=== PATIENT | female | born 1970 | race Hispanic/Latino ===

== ENCOUNTER 2020-09-05 03:57 | Inpatient (IN) | payer SELFPAY ==
[2020-09-05] MEDS ORDERED: NA CHLORIDE 0.9% 1,000 ML ONE (04:51)
[2020-09-05] MEDS ORDERED: CEFTRIAXONE/SWI 1gm 1 GM/10 ML SYR ONE (04:51)
[2020-09-05] MEDS ORDERED: NA CHLORIDE 0.9% 250 ML ONE (04:51)
[2020-09-05] MEDS ORDERED: AZITHROMYCIN 500 MG INJ IVPB ONE (04:51)
[2020-09-05 05:06] LABS: Absolute Lymphocytes (CBC) 1.3 K/uL (0.7-4.9); Basophils % 0.8 % (0-1.3); Lymphocytes % 11.8 % (15.3-44.8); RBC Red Blood Cell Count 4.71 M/uL (3.86-4.86)
[2020-09-05 05:10] LABS: Protime INR 1.09
[2020-09-05 05:43] LABS: ALT/SGPT 29 U/L (12-78); AST/SGOT 22 U/L (15-37); Albumin 3.5 g/dL (3.4-5.0); Alkaline Phosphatase 85 U/L (45-117); Amylase 49 U/L (25-115); BUN Blood Urea Nitrogen 10 mg/dL (7-18); Bicarbonate 30 mmol/L (21-32); Bilirubin Direct < 0.1 mg/dL (0-0.2); Bilirubin Total 0.4 mg/dL (0.2-1.0); CKMB Creatine Kinase MB 2.1 ng/mL (0.3-3.6); Creatine Phosphokinase 112 U/L (26-192); Glucose Level 121 mg/dL (74-106); Lipase 139 U/L (73-393); Potassium 3.3 mmol/L (3.5-5.1); Protein, Total 7.1 g/dL (6.4-8.2); Sodium Level 138 mmol/L (136-145); Troponin (Emerg Dept Use Only) < 0.02 ng/mL (0.0-0.045)
--- NOTE | 2020-09-05 07:04 | EDPHYS ---
Physician Documentation [facility] Name: Angeles Carmona Age: 49 yrs Sex: Female : 1970 Arrival Date: 09/05/2020 Time: 03:59 Bed 15 Private MD: ED Physician Daria Mckeon HPI: 09/05 05:50 This 49 yrs old Female presents to ER via Ambulatory with complaints of Abdominal Pain, ma2 Breathing Difficulty. 05:50 The patient has shortness of breath at rest. Onset: The symptoms/episode began/occurred ma2 gradually, 1 week(s) ago. Associated signs and symptoms: Pertinent positives: abd pain and distention , Pertinent negatives: productive cough, dizziness, hemoptysis, loss of consciousness, nausea. Severity of symptoms: At their worst the symptoms were mild in the emergency department the symptoms are unchanged. The patient has not experienced similar symptoms in the past. Historical: - Allergies: 04:28 No Known Allergies; rr5 - Home Meds: 04:28 None [Active]; rr5 - PMHx: 04:28 None; rr5 - PSHx: 04:28 abdominal surgery; rr5 - Immunization history:: Adult Immunizations unknown. - Social history:: Smoking status: unknown Patient/guardian denies using alcohol, street drugs, Patient/guardian denies using The patient lives with family. - Family history:: not pertinent. ROS: 05:50 Constitutional: Negative for fever, chills, and weight loss. ma2 05:50 All other systems are negative. Exam: 05:50 Constitutional: This is a well developed, well nourished patient who is awake, alert, ma2 and in no acute distress. Head/Face: Normocephalic, atraumatic. Eyes: Pupils equal round and reactive to light, extra-ocular motions intact. Lids and lashes normal. Conjunctiva and sclera are non-icteric and not injected. Cornea within normal limits. Periorbital areas with no swelling, redness, or edema. ENT: Nares patent. No nasal discharge, no septal abnormalities noted. Tympanic membranes are normal and external auditory canals are clear. Oropharynx with no redness, swelling, or masses, exudates, or evidence of obstruction, uvula midline. Mucous membranes moist. Neck: Trachea midline, no thyromegaly or masses palpated, and no cervical lymphadenopathy. Supple, full range of motion without nuchal rigidity, or vertebral point tenderness. No Meningismus. Chest/axilla: Normal chest wall appearance and motion. Nontender with no deformity. No lesions are appreciated. Cardiovascular: Regular rate and rhythm with a normal S1 and S2. No gallops, murmurs, or rubs. Normal PMI, no JVD. No pulse deficits. Respiratory: bilateral basal rales, otherwise Lungs have equal breath sounds bilaterally, clear to percussion. No r wheezes noted. no retractions or nasal flaring. Abdomen/GI: Soft, non-tender, with normal bowel sounds. No distension or tympany. No guarding or rebound. No evidence of tenderness throughout. Back: No spinal tenderness. No costovertebral tenderness. Full range of motion. Skin: Warm, dry with normal turgor. Normal color with no rashes, no lesions, and no evidence of cellulitis. MS/ Extremity: Pulses equal, no cyanosis. Neurovascular intact. Full, normal range of motion. Neuro: Awake and alert, GCS 15, oriented to person, place, time, and situation. Cranial nerves II-XII grossly intact. Motor strength 5/5 in all extremities. Sensory grossly intact. Cerebellar exam normal. Normal gait. Vital Signs: 04:17 BP 133 / 98; Pulse 128; Resp 24; Temp 98.5; Pulse Ox 97% ; rr5 04:28 Weight 90.72 kg; Height 5 ft. 5 in. (165.10 cm); Pain 6/10; rr5 05:32 BP 124 / 76; Pulse 121; Resp 27; Temp 98.5; Pulse Ox 99% ; Pain 0/10; jv1 06:31 BP 165 / 102; Pulse 114; Resp 20; Temp 98.5; Pulse Ox 100% ; Pain 0/10; jv1 07:00 BP 145 / 100; Pulse 113; Resp 17; Pulse Ox 100% on 2 lpm NC; bp 08:00 BP 139 / 98; Pulse 113; Resp 25; Pulse Ox 100% ; bp 09:00 BP 135 / 95; Pulse 116; Resp 29; Pulse Ox 100% ; bp 10:00 BP 143 / 91; Pulse 94; Resp 34; Pulse Ox 100% on 50% Venturi mask; bp 04:28 Body Mass Index 33.28 (90.72 kg, 165.10 cm) rr5 MDM: 04:14 Patient medically screened. [facility] 05:50 Differential diagnosis: Anemia Bronchitis CHF exacerbation, Chronic Obstructive in2 Pulmonary Disease Myocardial Infarction pneumonia, Sepsis. 07:01 Data reviewed: vital signs, nurses notes. Counseling: I had a detailed discussion with [facility] the patient and/or guardian regarding: the historical points, exam findings, and any diagnostic results supporting the discharge/admit diagnosis, the presence of at least one elevated blood pressure reading (>120/80) during this emergency department visit, the need for further work-up and treatment in the hospital. Response to treatment: the patient's symptoms have markedly improved after treatment. ED course: discussed with dr. martines and will discuss w dr. whyte. 09/05 04:20 Order name: Amylase, Serum [facility] 09/05 04:20 Order name: Basic Metabolic Panel [facility] 09/05 04:20 Order name: Blood Culture Adult (2) [facility] 09/05 04:20 Order name: CBC with Diff [facility] 09/05 04:20 Order name: Ckmb [facility] 09/05 04:20 Order name: CPK [facility] 09/05 04:20 Order name: Lactate [facility] 09/05 04:20 Order name: LFT's [facility] 09/05 04:20 Order name: Lipase [facility] 09/05 04:20 Order name: Procalcitonin [facility] 09/05 04:20 Order name: Protime (+inr) [facility] 09/05 04:20 Order name: Ptt, Activated; Complete Time: 05:36 [facility] 09/05 04:20 Order name: Troponin (emerg Dept Use Only); Complete Time: 06:23 [facility] 09/05 04:20 Order name: Urine Microscopic Only [facility] 09/05 04:20 Order name: Flu; Complete Time: 06:23 [facility] 09/05 04:20 Order name: Amylase; Complete Time: 06:23 [facility] 09/05 04:20 Order name: Basic Metabolic Panel; Complete Time: 06:23 [facility] 09/05 04:20 Order name: Blood Culture [facility] 09/05 04:20 Order name: CBC with Automated Diff; Complete Time: 05:36 [facility] 09/05 04:20 Order name: CKMB Creatine Kinase MB; Complete Time: 06:23 EDMS 09/05 04:20 Order name: Creatine Phosphokinase; Complete Time: 06:23 EDMS 09/05 04:20 Order name: Lactate; Complete Time: 06:23 MS 09/05 04:20 Order name: Liver (Hepatic) Function; Complete Time: 06:23 EDMS 09/05 04:20 Order name: Lipase; Complete Time: 06:23 EDMS 09/05 04:20 Order name: Procalcitonin; Complete Time: 06:23 EDMS 09/05 04:20 Order name: Protime (+INR); Complete Time: 05:36 EDMS 09/05 05:04 Order name: Glucose, Ancillary Testing; Complete Time: 05:36 EDMS 09/05 05:07 Order name: CREATININE WHOLE BLOOD; Complete Time: 05:36 EDMS 09/05 07:02 Order name: SARS-COV-2 RT PCR [facility] 09/05 04:20 Order name: Chest Single View XRAY [facility] 09/05 04:20 Order name: Accucheck; Complete Time: 04:52 in2 09/05 04:20 Order name: Cardiac monitoring; Complete Time: 04:52 in2 09/05 04:20 Order name: EKG - Nurse/Tech; Complete Time: 04:52 in2 09/05 04:20 Order name: IV Saline Lock - Large Bore; Complete Time: 04:52 in2 09/05 04:20 Order name: Labs collected and sent; Complete Time: 04:53 in2 09/05 04:20 Order name: O2 Per Protocol; Complete Time: 05:29 ma2 09/05 04:20 Order name: O2 Sat Monitoring; Complete Time: 04:53 in2 09/05 05:37 Order name: Chest Abdomen Pelvis W Cont [facility] 09/05 08:09 Order name: CONS Pharmacy Consult [facility] 09/05 08:09 Order name: CONS Physician Consult [facility] 09/05 08:09 Order name: NPO [facility] 09/05 08:09 Order name: CBC with Automated Diff [facility] 09/05 08:09 Order name: CBC with Automated Diff [facility] 09/05 08:09 Order name: Comprehensive Metabolic Panel [facility] 09/05 08:09 Order name: Comprehensive Metabolic Panel [facility] 09/05 08:09 Order name: Troponin I [facility] 09/05 08:09 Order name: Troponin I [facility] 09/05 08:09 Order name: Troponin I [facility] 09/05 08:11 Order name: Echo with Doppler [facility] 09/05 08:11 Order name: Thoracentesis w/ US Guide [facility] 09/05 08:14 Order name: CONS Physician Consult [facility] 09/05 09:42 Order name: CXR XRAY 09/05 10:45 Order name: RAD [facility] 09/05 12:04 Order name: RAD [facility] 09/05 14:24 Order name: CXR XRAY 09/05 14:56 Order name: RAD [facility] 09/05 04:20 Order name: Droplet/Contact Precautions; Complete Time: 06:27 ma2 Administered Medications: 04:40 Drug: NS 0.9% 1000 ml Route: IV; Rate: 1 bolus; Site: right antecubital; jv1 07:07 Follow up: IV Status: Order to discontinue infusion; IV Intake: 700ml jv1 05:00 Drug: Rocephin 1 grams Route: IV; Rate: calculated rate; Site: right antecubital; jv1 06:30 Follow up: Response: No adverse reaction jv1 07:10 Follow up: IV Status: Completed infusion; IV Intake: 50ml bp 05:15 Drug: AZITHromycin 500 mg Route: IVPB; Infused Over: 1 hrs; Site: right antecubital; jv1 06:30 Follow up: Response: No adverse reaction jv1 07:10 Follow up: IV Status: Completed infusion; IV Intake: 100ml bp Disposition: 09/05/20 07:03 Hospitalization ordered by Daria Whyte for Inpatient Admission. Preliminary diagnosis is Pleural effusion in other conditions classified elsewhere - right sided. - Bed requested for Intensive Care Unit. - Status is Inpatient Admission. bp - Condition is Stable. - Problem is new. - Symptoms are unchanged. Signatures: Dispatcher [employer] [facility] Kirsty Maradiaga Brian, RN RN bp Daria Mckeon MD MD ma2 Aaw Bradford RN RN jv1 Eriberto Trammell, RN RN rr5 Corrections: (The following items were deleted from the chart) 05:37 05:32 Chest Abdomen W/ Con+CT.RAD.BRZ ordered. [facility] 05:39 04:21 Abdomen Pelvis W Con+CT.RAD.BRZ ordered. EDMS EDMS 06:05 04:21 CORONAVIRUS+MR.LAB.BRZ ordered. EDMS EDMS 06:27 04:20 Document PUI# ordered. [facility] rr5 06:27 04:20 Notify Health Dept [phone]/ ordered. [facility] rr5 07:09 07:01 ED course: discussed with dr. martines and dr. whyte. [place] [id number] 13:42 07:03 Hospitalization Ordered by Daria Whyte MD for Inpatient Admission. Preliminary bd diagnosis is Pleural effusion in other conditions classified elsewhere - right sided. Bed requested for Telemetry/MedSurg (Inpatient). Status is Inpatient Admission. Condition is Stable. Problem is new. Symptoms are unchanged. ma2 14:16 13:42 09/05/2020 07:03 Hospitalization Ordered by Daria Whyte MD for Inpatient bd Admission. Preliminary diagnosis is Pleural effusion in other conditions classified elsewhere - right sided. Bed requested for [facility] ER HOLD. Status is Inpatient Admission. Condition is Stable. Problem is new. Symptoms are unchanged. bd 16:39 14:16 09/05/2020 07:03 Hospitalization Ordered by Daria Whyte MD for Inpatient bp Admission. Preliminary diagnosis is Pleural effusion in other conditions classified elsewhere - right sided. Bed requested for Intensive Care Unit. Status is Inpatient Admission. Condition is Stable. Problem is new. Symptoms are unchanged. bd
--- NOTE | 2020-09-05 07:04 | ER ---
Nurse's Notes [facility] Name: Angeles Carmona Age: 49 yrs Sex: Female : 1970 Arrival Date: 09/05/2020 Time: 03:59 Bed 15 Private MD: Diagnosis: Pleural effusion in other conditions classified elsewhere-right sided Presentation: 09/05 04:17 Chief complaint: Patient states: shortness of breath for started 3 weeks ago. went to rr5 my doctor given medication but did not relieved. I am having abdominal pain, distention and constipated too. Coronavirus screen: Client denies travel out of the [place] in the last 14 days. difficulty breathing, fatigue, shortness of breath, Client presents with at least one sign or symptom that may indicate coronavirus-19. Standard/surgical mask placed on the client. Provider contacted for isolation considerations. Ebola Screen: Patient negative for fever greater than or equal to 101.5 degrees Fahrenheit, and additional compatible Ebola Virus Disease symptoms Patient denies exposure to infectious person. Patient denies travel to an Ebola-affected area in the 21 days before illness onset. Initial Sepsis Screen: Does the patient meet any 2 criteria? RR > 20 per min. HR > 90 bpm. Does the patient have a suspected source of infection? Yes: Productive cough/pneumonia Acute abdominal pain If YES to both, name of provider notified: Daria Mckeon MD. Risk Assessment: Do you want to hurt yourself or someone else? Patient reports no desire to harm self or others. Onset of symptoms was September 05, 2020. 04:17 Method Of Arrival: Ambulatory rr5 04:17 Acuity: SHANTA 2 rr5 Triage Assessment: 04:35 General: Appears uncomfortable, well groomed, well developed, Behavior is calm, jv1 cooperative, appropriate for age. Pain: Denies pain. EENT: No signs and/or symptoms were reported regarding the EENT system. Neuro: Level of Consciousness is awake, alert, obeys commands, Oriented to person, place, time, situation, Appropriate for age Fabric Machine Operator are equal bilaterally Moves all extremities. Gait is steady, Speech is normal. Cardiovascular: Denies chest pain, Heart tones S1 S2 Capillary refill < 3 seconds Pulses are all present. Rhythm is regular. Respiratory: Reports shortness of breath at rest cough that is non-productive, Airway is patent Respiratory effort is even, unlabored, Respiratory pattern is regular, symmetrical, Breath sounds are clear bilaterally. GI: Abdomen is round distended, Bowel sounds present X 4 quads. Abd is soft and non tender X 4 quads. Reports bloating. : No signs and/or symptoms were reported regarding the genitourinary system. Derm: Skin is intact, is healthy with good turgor. Musculoskeletal: No signs and/or symptoms reported regarding the musculoskeletal system. Capillary refill < 3 seconds. Historical: - Allergies: 04:28 No Known Allergies; rr5 - Home Meds: 04:28 None [Active]; rr5 - PMHx: 04:28 None; rr5 - PSHx: 04:28 abdominal surgery; rr5 - Immunization history:: Adult Immunizations unknown. - Social history:: Smoking status: unknown Patient/guardian denies using alcohol, street drugs, Patient/guardian denies using The patient lives with family. - Family history:: not pertinent. Screenin:40 Abuse screen: Denies threats or abuse. Nutritional screening: No deficits noted. jv1 Tuberculosis screening: No symptoms or risk factors identified. Fall Risk None identified. Assessment: 04:35 General: Appears uncomfortable, well groomed, well developed, Behavior is calm, jv1 cooperative, appropriate for age, Smells of. General:. Pain: Denies pain. Neuro: Level of Consciousness is awake, alert, obeys commands, Oriented to person, place, time, situation, Appropriate for age Fabric Machine Operator are equal bilaterally Moves all extremities. Gait is steady. Cardiovascular: Denies chest pain, Heart tones S1 S2 Capillary refill < 3 seconds Pulses are all present. Rhythm is regular. Respiratory: Reports shortness of breath cough that is Airway is patent Respiratory effort is even, unlabored, Respiratory pattern is regular, symmetrical, Breath sounds are diminished bilaterally. GI: Abdomen is round distended, Reports bloating. : No signs and/or symptoms were reported regarding the genitourinary system. EENT: No signs and/or symptoms were reported regarding the EENT system. Derm: Skin is intact, is healthy with good turgor. Musculoskeletal: Circulation, motion, and sensation intact. Capillary refill < 3 seconds. 05:09 Reassessment: this patient cannot currently tolerate laying supine, pt reports sg breathing difficulty increases. spa technician Ino at bedside for assessing patient, states she will not be able to lay still and flat long enough for a successful exam, notified. 05:30 Reassessment: Patient appears in no apparent distress at this time. No changes from jv1 previously documented assessment. Patient and/or family updated on plan of care and expected duration. Pain level reassessed. Patient is alert, oriented x 3, equal unlabored respirations, skin warm/dry/pink. 05:49 Reassessment: pt came back from CT, she finished the exam. jv1 06:30 Reassessment: provider ordered to not complete the iv infusion. jv1 06:35 Reassessment: provider in the room with pt, explained to pt the need to transfer to [facility] another hospital. pt agreed. agreed too. 06:52 Reassessment: No changes from previously documented assessment. Patient and/or family jv1 updated on plan of care and expected duration. Pain level reassessed. Patient is alert, oriented x 3, equal unlabored respirations, skin warm/dry/pink. 07:00 Reassessment: RECD REPORT FROM NADEGE GODINEZ. 49YO HF P/W SOB x3 WK. ALL CURRENT ORDERS bp COMPLETED. 07:05 Reassessment: ADMIT INITIATED. PT COVID +. bp 08:24 Reassessment: CONSENT FOR PLEURACENTESIS SIGNED AND WITNESSED. PROCEDURE PENDING. bp 09:00 Reassessment: No changes from previously documented assessment. PER U/S, THORACENTESIS bp CANCELLED. REPEAT TROP DRAWN AND SENT. Cardiovascular: Rhythm is sinus rhythm. Respiratory: Airway is patent Respiratory effort is even, labored, Respiratory pattern is regular, tachypnea Breath sounds are diminished. 09:38 Reassessment: THORACENTESIS CANCELLED IN FAVOR OF CHEST TUBE. CONSENT SIGNED AND bp WITNESSED. DR SALAZAR AT B/S FOR CHEST TUBE PLACEMENT. PT TOLERATED WELL. 09:42 Reassessment: LEFT MESSAGE FOR DR FRIEND REGARDING DESIRED LABS FOR PLEURAL EFFUSION bp FLUID. 09:55 Reassessment: DR FRIEND RESPONDED. AWAITING LAB ORDERS. bp 10:00 Reassessment: PT ON ER HOLD, SEE [facility] FOR FURTHER DOCUMENTATION. bp 16:05 Reassessment: ADMIT COMPLETE, REPORT TO SHREYA GODINEZ FOR RM 3. bp Vital Signs: 04:17 BP 133 / 98; Pulse 128; Resp 24; Temp 98.5; Pulse Ox 97% ; rr5 04:28 Weight 90.72 kg; Height 5 ft. 5 in. (165.10 cm); Pain 6/10; rr5 05:32 BP 124 / 76; Pulse 121; Resp 27; Temp 98.5; Pulse Ox 99% ; Pain 0/10; jv1 06:31 BP 165 / 102; Pulse 114; Resp 20; Temp 98.5; Pulse Ox 100% ; Pain 0/10; jv1 07:00 BP 145 / 100; Pulse 113; Resp 17; Pulse Ox 100% on 2 lpm NC; bp 08:00 BP 139 / 98; Pulse 113; Resp 25; Pulse Ox 100% ; bp 09:00 BP 135 / 95; Pulse 116; Resp 29; Pulse Ox 100% ; bp 10:00 BP 143 / 91; Pulse 94; Resp 34; Pulse Ox 100% on 50% Venturi mask; bp 04:28 Body Mass Index 33.28 (90.72 kg, 165.10 cm) rr5 ED Course: 03:59 Patient arrived in ED. bp1 04:14 Daria Mckeon MD is Attending Physician. ma2 04:27 Triage completed. rr5 04:28 Arm band placed on right wrist. rr5 04:35 Patient has correct armband on for positive identification. Placed in gown. Bed in low jv1 position. Side rails up X2. Adult w/ patient. 04:38 Chest Single View XRAY In Process Unspecified. EDMS 04:38 Inserted saline lock: 20 gauge in right antecubital area, using aseptic technique. jv1 06:17 Chest Abdomen Pelvis W Cont In Process Unspecified. EDMS 06:37 Started to initiate transfer with [facility] with Pietro Roland. He stated they were tt3 about to change shifts to call back after shift change. 06:56 Jorge Alberto, HERBERT is Primary Nurse. bp 07:02 Daria Hinojosa MD is Hospitalizing Provider. ma2 09:39 Assist provider with chest tube insertion with 20 Fr. in right lateral Tray was set up. bp Attached to pleur-e-vac. Chest tube inserted by Ralph Salazar MD Placement verified by fluctuation of fluid, Dressed with foam tape, Patient tolerated well. Chest tube maintenance: Connected to pleur-e-vac. Fluctuates with respirations. Site clean \T\ dry. 12:15 Patient admitted, IV remains in place. bp Administered Medications: 04:40 Drug: NS 0.9% 1000 ml Route: IV; Rate: 1 bolus; Site: right antecubital; jv1 07:07 Follow up: IV Status: Order to discontinue infusion; IV Intake: 700ml jv1 05:00 Drug: Rocephin 1 grams Route: IV; Rate: calculated rate; Site: right antecubital; jv1 06:30 Follow up: Response: No adverse reaction jv1 07:10 Follow up: IV Status: Completed infusion; IV Intake: 50ml bp 05:15 Drug: AZITHromycin 500 mg Route: IVPB; Infused Over: 1 hrs; Site: right antecubital; jv1 06:30 Follow up: Response: No adverse reaction jv1 07:10 Follow up: IV Status: Completed infusion; IV Intake: 100ml bp Intake: 07:07 IV: 700ml; Total: 700ml. jv1 07:10 IV: 50ml; Total: 750ml. bp 07:10 IV: 100ml; Total: 850ml. bp 09:44 CHEST TUBE bp 10:22 CHEST TUBE bp Output: 09:44 Drainage: 2000ml; Total: 2000ml. bp 10:22 Drainage: 2000ml; Total: 4000ml. bp 09:44 CHEST TUBE bp 10:22 CHEST TUBE bp Outcome: 07:03 Decision to Hospitalize by Provider. ma2 12:15 Admitted to ER Hold. Please see [facility] for further documentation. bp 16:39 Patient left the ED. bp Signatures: Dispatcher [employer] EDMS Buddy Wan RN HERBERT sg Jorge Alberto RN RN bp Daria Mckeon MD MD ma2 Awa Bradford RN RN jv1 Nadege Trammell, RN RN rr5 Smita Gil bp1 Chema Ch tt3 Corrections: (The following items were deleted from the chart) 07:08 07:00 BP 145 / 100; Pulse 113bpm; Resp 17bpm; Pulse Ox 100%; bp bp 09:02 09:00 Reassessment: No changes from previously documented assessment. PER U/S, bp THORACENTESIS CANCELLED bp 09:52 09:38 Reassessment: THORACENTESIS CANCELLED IN FAVOR OF CHEST TUBE. DR SALAZAR AT B/S bp FOR CHEST TUBE PLACEMENT. PT TOLERATED WELL bp
--- NOTE | 2020-09-05 07:59 | RAD REPORT ---
EXAM DESCRIPTION: RAD - Chest Single View - 09/05/2020 4:37 am CLINICAL HISTORY: ABDOMINAL DISTENTION, shortness of breath COMPARISON: None TECHNIQUE: AP portable chest image was obtained 09/05/2020 4:37 am . FINDINGS: There is complete opacification of the right hemithorax with slight shift of the trachea. Left lung field is clear. No left-sided pleural effusion identified. Right-side of the heart is obscu red. Vasculature within normal limits. No pneumothorax. No acute bony abnormality seen. No acute aort ic findings suspected. IMPRESSION: Complete opacification of the right hemithorax most likely from pleural effusion. Mild right to left trachea and mediastinal shift.
[2020-09-05] MEDS ORDERED: ACETAMINOPHEN 500 MG TAB PO PRN (08:04)
[2020-09-05] MEDS ORDERED: ALBUTEROL 2.5 MG/3 ML NEB SOL NEB PRN (09:00)
[2020-09-05] MEDS: NA CHLORIDE 0.9% 1,000 ML IV SCH ×2 (09:00→21:11)
[2020-09-05] MEDS: IPRATROPIUM BROM 0.5MG/2.5ML NEB SCH ×3 (09:00→20:00)
--- NOTE | 2020-09-05 09:35 | P.OP ---
Preoperative diagnosis: RIGHT pleural effusion Postoperative diagnosis: RIGHT pleural effusion Primary procedure: Placement of RIGHT Thoracostomy Tube Anesthesia: Local 1% lidocaine used Estimated blood loss: <2cc Specimen: Pleural Fluid sent - Findings: straw colored pleural fluid Complications: None Drain(s): Other (Thal Chest tube) Transferred to: Other (ER) Condition: Fair
--- NOTE | 2020-09-05 10:07 | OP ---
Date of Procedure: 09/05/2020 Surgeon: Ralph Wilson MD, Preoperative Diagnosis: Right pleural effusion. Postoperative Diagnosis: Right pleural effusion. Procedure Performed: Placement of right thoracostomy tube. Anesthesia: Local 1% lidocaine used. Estimated Blood Loss: Less than 2 mL. Specimens: Pleural fluid sent. Findings: Straw-colored pleural fluid, nonbloody tap. Complications: None. Drains: A Thal small bore chest tube was left in place. The patient remained in the ER in fair condition throughout the procedure. Procedure In Detail: After informed consent was obtained, the patient was prepped and draped in the usual sterile fashion after adequate anesthesia was achieved at approximately the fifth and sixth int ercostal space. I anesthetized the area with 1% lidocaine going over the rib. I then made a small n ick incision and using a finer needle, I cannulated the right thoracic cavity and immediately returne d straw-colored clear fluid. At this point, the wire was advanced into the chest cavity and the need le was removed. At this point, I then performed sequential dilatation using Seldinger technique over the wire and dilated up the tract ultimately placing the Thal chest tube in the right thoracic space . The wire out was called at this point and clear straw-colored fluid was appreciated coming out of the chest tube at this point and I hooked up to the Pneumovax system. Immediately, 2 L of straw-colo red fluid was returned. Some of this was sent for analysis. Dr. Dawkins will be contacted for his specifics and request for what type of analysis to be performed. I then secured this chest tube with the 2-0 nylon suture to the chest insertion and the area was cleansed and a sterile dressing placed over top. The patient tolerated the procedure well without evidence of complication, remained in the ER in fair condition throughout the procedure. All counts were correct at the end of the case. TK/MODL Voice ID: [id number] Report ID: [id number]
--- NOTE | 2020-09-05 10:16 | RAD REPORT ---
EXAM DESCRIPTION: CT - Chest Abdomen Pelvis W Cont - 09/05/2020 6:54 am CLINICAL HISTORY: SOB / SEPSIS? TECHNIQUE: Axial computed tomography images of the chest, abdomen and pelvis with intravenous contra st. Sagittal and coronal reformatted images were created and reviewed. This CT exam was performed using one or more of the following dose reduction techniques: automated exposure control, adjustme nt of the mA and/or kV according to patient size, and/or use of iterative reconstruction technique. COMPARISON: No relevant prior studies available. FINDINGS: CHEST: Lungs: There is complete collapse of the right lung. Left lung clear. Pleural space: Large right pleural effusion opacifies the right hemithorax. No pneumothorax. Heart: No abnormality noted. Mediastinum: There is mediastinal shift to the left. Thyroid: No abnormality noted. ABDOMEN: Liver: No abnormality noted. Gallbladder and bile ducts: No abnormality noted. No calcified stones. No ductal dilation. Pancreas: Homogeneous enhancement. No mass, inflammation or ductal dilation. Spleen: Visualized portions appear normal. Adrenals: Visualized portions appear normal. Kidneys and ureters: Benign cyst right kidney. Left kidney appears normal. Stomach and bowel: Limited assessment of the intestinal tract by respiratory motion. No obstruct ion. Moderate stool. PELVIS: Appendix: No findings to suggest acute appendicitis. Bladder: No filling defects to suggest mass or large stone. No inflammation. Reproductive: Visualized portions appear normal. CHEST, ABDOMEN and PELVIS: Intraperitoneal space: Moderate to large amounts of diffuse ascitic fluid in present throughout the abdomen and pelvis. Material identified in the dependent portion of the pelvic fluid. There is diffuse edematous change throughout the omentum and lesser edema throughout the mes entery. Retroperitoneal space: No abnormality noted. No fluid collection. Bones/joints: No acute fracture or osseous destruction. Soft tissues: Visualized portions appear normal. Vasculature: No abnormality noted. No aortic aneurysm. Lymph nodes: No enlarged lymph nodes. IMPRESSION: 1. Large right pleural effusion with collapse of the right lung and mediastinal shift to the left. 2. Large amounts of ascites in the abdomen or pelvis. There is some solid material in the pelvic portion of the ascitic fluid. This could reflect the presence of blood or infection. Electronically signed by: Kirsty Rubio MD 09/05/2020 6:33 AM SPEED BELT SANDER Due to temporary technical issues with the PACS/Fluency reporting system, reports are being signed by the in house radiologist without review as a courtesy to ensure prompt reporting. The interpreting r adiologist is fully responsible for the content of the report.
--- NOTE | 2020-09-05 10:45 | RAD REPORT ---
EXAM DESCRIPTION: RAD - Chest Single View - 09/05/2020 10:01 am CLINICAL HISTORY: s/p chest tube placement COMPARISON: September 05 TECHNIQUE: AP portable chest image was obtained 09/05/2020 10:01 am . FINDINGS: Chest tube is now in place at the right lung base. Very large right pleural effusion filli ng the right hemithorax has almost fully resolved. There is a small amount of remnant pleural fluid a t the right base. There does appear to be a very minimal right apical pneumothorax. Trachea has retur augustina at midline. Heart and vasculature are normal. No acute bony abnormality seen. No acute aortic fin dings suspected. IMPRESSION: Right chest tube in place with the tip in the medial right base. There has been near com plete resolution of the very large right pleural effusion. Minimal right apical pneumothorax is suspected. This can be monitored on subsequent imaging.
[2020-09-05 11:15] VITALS: BMI 33.3
[2020-09-05] MEDS: MORPHINE 4 MG/ML SYR IV PRN ×2 (11:30→21:11)
[2020-09-05] MEDS: ONDANSETRON 4 MG/2 ML VIAL IV PRN (11:30)
[2020-09-05] MEDS ORDERED: MORPHINE 4 MG/ML SYR ONE (11:57)
[2020-09-05] MEDS ORDERED: ONDANSETRON 4 MG/2 ML VIAL ONE (11:58)
--- NOTE | 2020-09-05 12:02 | RAD REPORT ---
EXAM DESCRIPTION: RAD - Chest Single View - 09/05/2020 11:14 am CLINICAL HISTORY: Sp chest tube, pleural effusion, shortness of breath COMPARISON: September 05 TECHNIQUE: AP portable chest image was obtained 09/05/2020 11:14 am . FINDINGS: Chest 2 remains in the right base. The amount of pleural fluid has not clearly changed. Ex amination has respiratory motion degradation which limits evaluation of the suspected small right api deneen pneumothorax. Pneumothorax is questionably enlarged. There is increased parenchymal opacification in the central mid and lower right chest. This could be recurring atelectasis. Reactive pulmonary edema is possible. Trachea remains midline. No left lung field abnormality. IMPRESSION: Right apical pneumothorax is suspected to have increased slightly. The amount of respira tory motion degradation limits evaluation. New parenchymal opacification in the medial portion of the mid and lower right lung field present. Th is could be re- developing atelectasis or possibly reactive pulmonary edema.
--- NOTE | 2020-09-05 12:32 | P.CNS ---
Date of Consult: 09/05/20 Reason for Consult: Pleural effusion Chief Complaint: Shortness of breath History of Present Illness: Patient is 49 years of age history obtained from a she has had progressive dyspnea for the past 2 weeks no history of fever chills as some chest discomfort no prior history of cancer admitted with massive right-sided pleural effusion chest tube place is doing much better Allergies No Known Allergies Allergy (Unverified 09/05/20 08:35) Review of Systems is unable to be obtained Physical Examination Temp Pulse Resp BP Pulse Ox 121 H 29 H 144/97 H 92 09/05/20 12:00 09/05/20 12:00 09/05/20 12:00 09/05/20 12:00 General: Alert, Oriented x3, Mild distress Respiratory: Clear to auscultation bilaterally Cardiovascular: No edema, Regular rate/rhythm Gastrointestinal: Normal bowel sounds, Soft and benign Musculoskeletal: No clubbing Laboratory Data (last 24 hrs) 09/05/20 04:40: PT 12.8 H, INR 1.09, APTT 28.9 09/05/20 04:40: WBC 11.1 H, Hgb 13.7, Hct 41.0, Plt Count 433 H 09/05/20 04:40: Sodium 138, Potassium 3.3 L, BUN 10, Creatinine 0.81, Glucose 121 H, Total Bilirubin 0.4, AST 22, ALT 29, Alkaline Phosphatase 85, Amylase 49, Lipase 139 - Problems (1) Pleural effusion Current Visit: Yes Status: Acute Plan: Patient is 49 years of age admitted with massive right-sided pleural effusion patient also has significant ascites as per report chest x-ray has improved fluid has been sent off for chemistries and cytology was likely related to malignancy differential diagnosis includes TB , lymphoma make syndrome chylothorax hepatic disorders I have added triglycerides Leander a CT of the chest with contrast tomorrow she may indeed iodine pleurodesis
[2020-09-05] MEDS ORDERED: IPRATROPIUM BROM 0.5MG/2.5ML ONE (12:58)
--- NOTE | 2020-09-05 14:52 | RAD REPORT ---
EXAM DESCRIPTION: RAD - Chest Single View - 09/05/2020 2:43 pm CLINICAL HISTORY: SOB, chest tube COMPARISON: Multiple examinations September 05 TECHNIQUE: AP portable chest image was obtained 09/05/2020 2:43 pm . FINDINGS: Right pneumothorax has enlarged slightly since prior imaging now approximately 30% pneumot horax. Chest tube remains in the right lung base. The amount of pleural fluid has not changed during the interval. Trachea remains in the midline. There is worsening opacification of the partially aerat ed right lobes likely a reflex or rebound pulmonary edema. Left lung field is clear. Heart size has not changed. IMPRESSION: Left-sided pneumothorax, approximately 30%, slightly worse than prior imaging. Worsening airspace opacification in the right lung field.
--- NOTE | 2020-09-05 15:20 | P.HP ---
Certification for Inpatient Patient admitted to: Inpatient With expected LOS: >2 Midnights Patient will require the following post-hospital care: None Practitioner: I am a practitioner with admitting privileges, knowledge of patient current condition, hospital course, and medical plan of care. Services: Services provided to patient in accordance with Admission requirements found in Title 42 Section 412.3 of the Code of Federal Regulations Patient History Date of Service: 09/05/20 Reason for admission: Shortness of breath History of Present Illness: Patient is a 49-year-old female who denies any history of medical problems. She has been noticing that her lower extremity in her abdomen have been swelling. She started getting more short of breath and that is what made her come into the emergency room for evaluation. When she was worked up she was found have all large right-sided pleural effusion and a large amount of ascites. Patient had lab work data as well which did not reveal any significant pathology to explain the anasarca. At this time, will do a thoracentesis or a chest tube placement to remove the fluid. Pulmonary consultation has been obtained as well. Urine protein levels are pending as well. Will get an echocardiogram, and will send the fluid off so we can determine the etiology. Allergies No Known Allergies Allergy (Unverified 09/05/20 08:35) - Past Medical/Surgical History Has patient received pneumonia vaccine in the past: No Past Medical History: Patient denies medical history Past Surgical History: Patient denies surgical history - Family History Father Family History: Reviewed- Non-Contributory - Social History Smoking Status: Never smoker Alcohol use: No CD- Drugs: No Review of Systems 10-point ROS is otherwise unremarkable Physical Examination - Vital Signs Temperature: 98 F Blood Pressure: 144/97 Pulse: 121 Respirations: 29 Pulse Ox (%): 92 - Physical Exam General: Alert, In no apparent distress, Oriented x3 HEENT: Atraumatic, PERRLA, Mucous membr. moist/pink, EOMI, Sclerae nonicteric Neck: Supple, 2+ carotid pulse no bruit, No LAD, Without JVD or thyroid abnormality Respiratory: Diminished, Crackles/rales Cardiovascular: Regular rate/rhythm, Normal S1 S2, No murmurs Gastrointestinal: Normal bowel sounds, Soft and benign, Non-distended, No tenderness, No rebound, No guarding, Ascites Musculoskeletal: No clubbing, No tenderness, Swelling Integumentary: No rashes Neurological: Normal gait, Normal speech, Normal strength at 5/5 x4 extr, Normal tone, Sensation intact, Cranial nerves 3-12 intact, Normal affect Lymphatics: No axilla or inguinal lymphadenopathy - Studies Laboratory Data (last 24 hrs) 09/05/20 04:40: PT 12.8 H, INR 1.09, APTT 28.9 09/05/20 04:40: WBC 11.1 H, Hgb 13.7, Hct 41.0, Plt Count 433 H 09/05/20 04:40: Sodium 138, Potassium 3.3 L, BUN 10, Creatinine 0.81, Glucose 121 H, Total Bilirubin 0.4, AST 22, ALT 29, Alkaline Phosphatase 85, Amylase 49, Lipase 139 Microbiology Data (last 24 hrs): 09/05/20 04:45 Nasopharnyx Influenza Type A Antigen Screen - Final 09/05/20 04:45 Nasopharnyx Influenza Type B Antigen Screen - Final Assessment & Plan - Problems (Diagnosis) (1) Anasarca Current Visit: Yes Status: Acute (2) Ascites Current Visit: Yes Status: Acute (3) Hypoxemia Current Visit: Yes Status: Acute (4) Pleural effusion Current Visit: Yes Status: Acute (5) COVID-19 Current Visit: Yes Status: Acute - Plan Plan: 1. At this time, we do not know the etiology of her large amount of fluids diffusely. Thoracenteses is being performed and will be sent off for numerous labs and pathology. Will also order echocardiogram. Urine specimen is being obtained as well. Will also plan on doing paracentesis. Patient is hypoxic and remains on 50% FiO2. 2. Patient also COVID positive. As long as she is not requiring a large amount of oxygen then we may not need to do intravenous steroids. Will discuss this case with Pulmonary. 3. GI and DVT prophylaxis Discharge Plan: Home Plan to discharge in: Greater than 2 days - Advance Directives Does patient have a Living Will: No Does patient have a Durable POA for Healthcare: No - Code Status/Comfort Care Code Status Assessed: Yes Code Status: Full Code Critical Care: Yes Time Spent Managing PTS Care (In Minutes): 45
[2020-09-05 16:45] LABS: Body Fluid WBC 1351 /mm^3
[2020-09-05 16:52] LABS: Appearance CLEAR (CLEAR); Body Fluid Source PLEURAL; Color of fluid Yellow (COLORLESS)
[2020-09-05] MEDS ORDERED: METOPROLOL TARTRATE 5 MG/5 ML INJ IV STA (20:13)
[2020-09-06] MEDS: IPRATROPIUM BROM 0.5MG/2.5ML NEB SCH ×2 (01:30→08:00)
[2020-09-06] MEDS: TRAMADOL 37.5mg/APAP 325mg PER TAB PO PRN ×2 (03:32→22:45)
[2020-09-06 05:32] LABS: Absolute Lymphocytes (CBC) 1.4 K/uL (0.7-4.9); Basophils % 0.6 % (0-1.3); Hematocrit 42.5 % (36.0-45.0); Lymphocytes % 9.9 % (15.3-44.8); MPV 9.2 fL (7.6-11.3); RBC Red Blood Cell Count 4.82 M/uL (3.86-4.86)
[2020-09-06 05:45] LABS: Albumin 2.5 g/dL (3.4-5.0); Bilirubin Total 0.5 mg/dL (0.2-1.0); Potassium 4.3 mmol/L (3.5-5.1); Protein, Total 5.6 g/dL (6.4-8.2)
--- NOTE | 2020-09-06 08:25 | ECHO ---
HEIGHT: 5 ft 5 in WEIGHT: 200 lb 0 oz DATE OF STUDY: 09/05/[address]: Daria Hinojosa MD 2-DIMENSIONAL: YES M.MODE: YES DOPPLER: YES COLOR FLOW: YES TDS: NO PORTABLE: NO DEFINITY: NO BUBBLE STUDY: NO DIAGNOSIS: CONGESTIVE HEART FAILURE CARDIAC HISTORY: CATHERIZATION: NO SURGERY: NO PROSTHETIC VALVE: NO PACEMAKER: NO MEASUREMENTS (cm) DIASTOLIC (NORMALS) SYSTOLIC (NORMALS) IVSd 1.0 (0.6-1.2) LA Diam 2.4 (1.9-4.0) LVEF 74% LVIDd 2.8 (3.5-5.7) LVIDs 1.7 (2.0-3.5) %FS 41% LVPWd 1.1 (0.6-1.2) Ao Diam 1.7 (2.0-3.7) 2 DIMENSIONAL ASSESSMENT: RIGHT ATRIUM: NORMAL LEFT ATRIUM: NORMAL RIGHT VENTRICLE: NORMAL LEFT VENTRICLE: NORMAL TRICUSPID VALVE: NORMAL MITRAL VALVE: NORMAL PULMONIC VALVE: NORMAL AORTIC VALVE: NORMAL PERICARDIAL EFFUSION: NONE AORTIC ROOT: NORMAL LEFT VENTRICULAR WALL MOTION: NORMAL DOPPLER/COLOR FLOW: NORMAL COMMENTS: HYPERDYNAMIC LEFT VENTRICLE WITH LEFT VENTRICULAR EJECTION FRACTION >70%. NORMAL WALL MOTION. DIASTOLIC DYSFUNCTION. TECHNOLOGIST: Delvis VASQUEZ
--- NOTE | 2020-09-06 09:24 | RAD REPORT ---
EXAM DESCRIPTION: CT - Thorax W/ Con - 09/06/2020 9:10 am CLINICAL HISTORY: Chest pain COMPARISON: September 05, 2020 chest x-ray TECHNIQUE: Computed axial tomography of the chest was obtained. 100 cc Isovue 300 was administered i ntravenously. All CT scans are performed using dose optimization technique as appropriate and may include automated exposure control or mA/KV adjustment according to patient size. FINDINGS: A chest tube is present within the anterior right base. The tip crosses midline and lies a djacent to the sternum and heart. A pneumothorax estimated to be 20-25% is present. Marked alveolar opacities are present within the right lung. A small amount of subcutaneous emphysema No mediastinal or hilar lymphadenopathy is seen. Small right pleural effusion. A pericardial effusion is not seen. IMPRESSION: The tip of a chest tube lies between the sternum and heart to the left of midline. Right pneumothorax estimated to be 20-25% Large amount of alveolar opacities right lung could represent pulmonary edema or pneumonia
--- NOTE | 2020-09-06 12:02 | P.PN ---
Subjective Date of Service: 09/06/20 Chief Complaint: Right-sided pleural effusion and pneumonia Subjective: Improving (Patient is improving shortness of breath is better still has some residual pneumothorax on the right side be dense right-sided consolidation) Review of Systems is unable to be obtained Physical Examination - Vital Signs Temperature: 98 F Blood Pressure: 144/97 Pulse: 121 Respirations: 29 Pulse Ox (%): 92 - Physical Exam General: Alert, In no apparent distress Respiratory: Clear to auscultation bilaterally Cardiovascular: No edema, Normal S1 S2 - Studies Microbiology Data (last 24 hrs): 09/05/20 04:45 Nasopharnyx Influenza Type A Antigen Screen - Final 09/05/20 04:45 Nasopharnyx Influenza Type B Antigen Screen - Final Assessment & Plan - Problems (Diagnosis) (1) Pleural effusion Current Visit: Yes Status: Acute Plan: Patient admitted with a right-sided pneumonia and pleural effusion differential he is not suggestive of a bacterial infection predominance of mononuclear I have ordered an high grade test organism highly unlikely for read to be tuberculosis or malignancy will await Gram stain also possible re-expansion pulmonary edema . IGRStest (2) COVID-19 Current Visit: Yes Status: Acute Plan: Patient is positive for stanley virus
[2020-09-06] MEDS: ENOXAPARIN 40 MG/0.4 ML SQ SCH (12:53)
--- NOTE | 2020-09-06 13:11 | CON ---
Date of Consultation: 09/05/2020 Brief History Of Present Illness: The patient is a 49-year-old female, who presents to the hospital with lower extremity and abdominal swelling and progressive shortness of breath, which was what made her come to the emergency room ultimately. She stated that the shortness of breath got progressively worse. She has not had any pain and no other inciting factor she can point to. She is COVID positi ve. Workup revealed that she had a large right pleural effusion with central whiteout of her lung. Past Medical History: She denies any medical history. Past Surgical History: Denies. Allergies: NO KNOWN DRUG ALLERGIES. Social History: She denies smoking, alcohol, or recreational drug use. Review of Systems: Ten-point review of systems other than HPI, she denies. Physical Examination: Vital Signs: At the time of my examination, BMI of 33.3. Her blood pressure was 119/87, heart rate was 121, respiratory rate 20, temperature 98.4. General: She is awake, alert, and oriented. Psychiatric: Appropriate. Conversive. HEENT: Normocephalic. Sclerae anicteric. Mucous membranes were moist. Oropharynx clear. She has a facemask on with 6 L/minute of oxygen via Venturi mask during my exam. Chest: Decreased breath sounds, essentially absent breath sounds on the right. Decreased breath iron nds on the left. Abdomen: Soft, nontender, nondistended. Laboratory Data: She had a laboratory exam, which revealed a white blood cell count 11.1, hemoglobin 13.7, hematocrit 41.0, platelet count is 433, neutrophils 86%. PT 12.8, INR 1.09, PTT is 28.9. Her sodium is 138, potassium 3.3, chloride 101, carbon dioxide 30, BUN 10, creatinine 0.8, glucose was 1 21, lactic acid 1.1, total bilirubin 0.4, AST 22, ALT 29, alkaline phosphatase 85. Her troponin was less than 0.02 on 2 subsequent checks. Her lipase is 139. Procalcitonin was less than 0.05. She smith d a chest x-ray and a chest, abdomen and pelvis CT which shows complete collapse of the right lung, l eft lung is clear, large right pleural effusion which opacifies the right hemothorax. There is media stinal shift to the left. There was a large amount of ascites in the abdomen and pelvis. There was some solid material in the pelvic portion of the ascitic fluid, could be presence of bladder infectio n. Assessment And Plan: This is a 49-year-old female, who came in with a large right pleural effusion. I have placed a chest tube. Please see my note for details regarding that in the right thoracic spa ce with good return of effluent and pleural fluid. Continue chest tube management with suction today and serial chest exams and chest x-rays. I will follow along with you. Thank you for this interesting consult. ELVIE/WILMAR Voice ID: [id number] Report ID: [id number]
[2020-09-06] MEDS: levoFLOXacin 750 MG TAB PO SCH (13:47)
--- NOTE | 2020-09-06 14:32 | P.PN ---
Subjective Date of Service: 09/06/20 Subjective: Improving Patient is still having large volumes of pleural effusion and to chest tube. Once this slows down then we can consider removing the chest tube. Review of Systems 10-point ROS is otherwise unremarkable Physical Examination - Vital Signs Temperature: 98 F Blood Pressure: 144/97 Pulse: 121 Respirations: 29 Pulse Ox (%): 92 - Physical Exam General: Alert, In no apparent distress HEENT: Atraumatic, PERRLA, EOMI Neck: Supple, JVD not distended Respiratory: Clear to auscultation bilaterally, Normal air movement Cardiovascular: Regular rate/rhythm, Normal S1 S2 Gastrointestinal: Normal bowel sounds, No tenderness Musculoskeletal: No tenderness Integumentary: No rashes Neurological: Normal speech, Normal tone, Normal affect Lymphatics: No axilla or inguinal lymphadenopathy - Studies Medications List Reviewed: Yes Assessment & Plan - Problems (Diagnosis) (1) Anasarca Current Visit: Yes Status: Acute (2) Ascites Current Visit: Yes Status: Acute (3) Hypoxemia Current Visit: Yes Status: Acute (4) Pleural effusion Current Visit: Yes Status: Acute (5) COVID-19 Current Visit: Yes Status: Acute - Plan Plan: 1. Unknown etiology of pleural effusion. Echocardiogram and lab and cytology are pending. 2. COVID-19 stable; continue supportive care 3. GI and DVT prophylaxis Discharge Plan: Home Plan to discharge in: Greater than 2 days - Advance Directives Does patient have a Living Will: No Does patient have a Durable POA for Healthcare: No - Code Status/Comfort Care Code Status: Full Code Critical Care: Yes Time Spent Managing PTS Care (In Minutes): 35
[2020-09-06] MEDS ORDERED: METOPROLOL TAR 25 MG TAB PO ONE (15:00)
[2020-09-06] MEDS: METOPROLOL TAR 25 MG TAB PO SCH ×2 (18:00→20:11)
[2020-09-06 19:04] LABS: Urine Appearance CLEAR; Urine Blood NEGATIVE (NEG); Urine Color DK YELLOW; Urine Glucose NEGATIVE (NEG); Urine Protein TRACE (NEG); Urine Specific Gravity >=1.030 (1.005-1.030); Urine Urobilinogen 0.2 mg/dL (0.2-1.0); Urine pH 5.5 (5.0-7.0)
[2020-09-06 19:59] LABS: Urine Bilirubin NEGATIVE (NEG)
[2020-09-06 20:01] LABS: Urine Bacteria 20-50 /HPF (<20); Urine Mucus 1+ /HPF (NONE SEEN); Urine RBC <5 /HPF (NONE SEEN)
[2020-09-07] MEDS: METOPROLOL TAR 25 MG TAB PO SCH ×2 (05:44→17:58)
--- NOTE | 2020-09-07 06:12 | EKG ---
Test Date: 2020-09-05 Test Time: 04:23:51 Automotive Diagnostic Technician: MARTHA MEASUREMENT RESULTS: Intervals: Rate: 117 [place]: 142 QRSD: 72 QT: 326 QTc: 454 [place]: P: 67 NJ: 142 QRS: 89 T: 80 INTERPRETIVE STATEMENTS: Sinus tachycardia Nonspecific ST abnormality Abnormal ECG No previous ECG available for comparison Electronically Signed On 09-07-20 06:10:03 GENERAL UTILITY MACHINE OPERATOR by Geoffrey Galicia
[2020-09-07] MEDS: levoFLOXacin 750 MG TAB PO SCH (07:34)
[2020-09-07] MEDS: TRAMADOL 37.5mg/APAP 325mg PER TAB PO PRN ×2 (07:34→20:20)
[2020-09-07] MEDS: ENOXAPARIN 40 MG/0.4 ML SQ SCH (07:34)
--- NOTE | 2020-09-07 09:00 | P.PN ---
Subjective Date of Service: 09/06/20 Chief Complaint: Right-sided pleural effusion and pneumonia Patient has significant symptomatic improvement, no longer has shortness of breath, but does have pain @ chest tube insertion site Physical Examination - Vital Signs Temperature: 98.6 F Blood Pressure: 122/84 Pulse: 108 Respirations: 22 Pulse Ox (%): 98 - Physical Exam General: Alert, In no apparent distress, Cooperative HEENT: Mucous membr. moist/pink Respiratory: Clear to auscultation bilaterally, Normal air movement, Other (RIGHT chest tube in place, was on water seal) - Studies Medications List Reviewed: Yes Assessment And Plan - Current Problems (Diagnosis) (1) Pleural effusion Current Visit: Yes Status: Acute Plan: - Chest tube to suction 40mm hg for 24 hours, then get daily chest x-rays, if improvement noted, will place chest tube to water seal, then fercho then DC - COVID-19 positive
--- NOTE | 2020-09-07 09:01 | P.PN ---
Subjective Date of Service: 09/06/20 Chief Complaint: Right-sided pleural effusion and pneumonia Patient has significant symptomatic improvement, no longer has shortness of breath, but does have pain @ chest tube insertion site Physical Examination - Vital Signs Temperature: 98.6 F Blood Pressure: 122/84 Pulse: 108 Respirations: 22 Pulse Ox (%): 98 - Physical Exam General: Alert, In no apparent distress, Oriented x3 Respiratory: Clear to auscultation bilaterally, Other (RIGHT chest tube in place, serous fluid, small air leak) - Studies Medications List Reviewed: Yes Assessment And Plan - Current Problems (Diagnosis) (1) Pleural effusion Current Visit: Yes Status: Acute Plan: - Chest tube to suction 40mm hg for 24 hours, then get daily chest x-rays, if improvement noted, will place chest tube to water seal, then fercho then АННА - COVID-19 positive
--- NOTE | 2020-09-07 10:55 | RAD REPORT ---
EXAM DESCRIPTION: RAD - Chest Single View - 09/07/2020 10:26 am CLINICAL HISTORY: Pneumothorax Chest pain. COMPARISON: Chest Single View dated 09/05/2020; Chest Single View dated 09/05/2020; Chest Single Vie w dated 09/05/2020; Chest Single View dated 09/05/2020; Thorax W/ Con dated 09/06/2020 FINDINGS: Portable technique limits examination quality. Right-sided chest tube remains in place. Degree of opacification of the right lung has moderately imp roved since comparative study. There continues to be a right pneumothorax, appearing mildly reduced i n size since comparative study, currently approximately 20% of lung volume. The heart is normal in si ze.
[2020-09-07] MEDS: ONDANSETRON 4 MG/2 ML VIAL IV PRN (11:22)
--- NOTE | 2020-09-07 12:38 | P.PN ---
Subjective Date of Service: 09/07/20 Chief Complaint: Right-sided pleural effusion and pneumonia Subjective: Improving (Complaining of some back pain otherwise no change still has small pneumothorax) Review of Systems General: Weakness Respiratory: Shortness of Breath Physical Examination - Vital Signs Temperature: 98.6 F Blood Pressure: 122/84 Pulse: 108 Respirations: 22 Pulse Ox (%): 98 - Physical Exam General: Alert, Oriented x3 Respiratory: Clear to auscultation bilaterally Cardiovascular: No edema, Regular rate/rhythm - Studies Medications List Reviewed: Yes Assessment & Plan - Problems (Diagnosis) (1) Pleural effusion Current Visit: Yes Status: Acute Plan: Patient admitted with right-sided pleural effusion chemistries are still pending as right-sided consolidation no evidence of pleural fluid infection still has a small pneumothorax continue with suction white count is mildly elevated patient is on leave off I have added prednisone postinflammatory changes on the right side patient does not have active signs of sepsis (2) COVID-19 Current Visit: Yes Status: Acute Plan: Patient is positive for stanley virus
[2020-09-07] MEDS: predniSONE 20 MG TAB PO SCH ×2 (12:54→20:21)
[2020-09-08] MEDS: ONDANSETRON 4 MG/2 ML VIAL IV PRN (05:16)
[2020-09-08] MEDS: METOPROLOL TAR 25 MG TAB PO SCH ×2 (06:07→18:02)
[2020-09-08 06:10] LABS: C-Reactive Protein 23.2 mg/L (<3.00); Ferritin 24.4 ng/mL (8-388)
--- NOTE | 2020-09-08 07:02 | RAD REPORT ---
EXAM DESCRIPTION: RAD - Chest Single View - 09/08/2020 5:40 am CLINICAL HISTORY: Pneumothorax COMPARISON: September 07, 2020 TECHNIQUE: AP portable chest image was obtained 09/08/2020 5:40 am . FINDINGS: Chest tube remains in place in good position. Moderate improvement in the right lung paren chymal opacification noted. Heart and vasculature are normal. No pleural effusion. Pneumothorax has r educed down to only a trace amount of pneumothorax in the right apex. Anterior pneumothorax component would be occult on supine portable exam. IMPRESSION: Significant reduction in the size of the pneumothorax. Only a trace amount of pneumothor ax (5%) at the apex. Anterior pneumothorax will be occult on portable supine imaging. Significant clearing of the right-sided lung parenchymal opacification.
--- NOTE | 2020-09-08 09:51 | P.PN ---
Subjective Date of Service: 09/07/20 Patient continues to improve. Right shoulder still has been hurting her but symptoms are gradually improving. She appears to look much better as well. Review of Systems 10-point ROS is otherwise unremarkable Physical Examination - Vital Signs Temperature: 98.3 F Blood Pressure: 117/77 Pulse: 91 Respirations: 21 Pulse Ox (%): 97 - Physical Exam General: Alert, In no apparent distress, Oriented x3 Respiratory: Crackles/rales Cardiovascular: Regular rate/rhythm, Normal S1 S2, No murmurs Gastrointestinal: Normal bowel sounds, Soft and benign, Non-distended, No tenderness Musculoskeletal: No clubbing, No swelling, No tenderness Neurological: Sensation intact, Cranial nerves 3-12 intact - Studies Medications List Reviewed: Yes Assessment & Plan - Problems (Diagnosis) (1) Anasarca Current Visit: Yes Status: Acute (2) Ascites Current Visit: Yes Status: Acute (3) Hypoxemia Current Visit: Yes Status: Acute (4) Pleural effusion Current Visit: Yes Status: Acute (5) COVID-19 Current Visit: Yes Status: Acute - Plan Plan: Continue with plan of care as mentioned below 1. Thoracentesis results pending. Await lab report and cytology 2. COVID-19 is stable and will continue supportive care 3. GI and DVT prophylaxis Discharge Plan: Home Plan to discharge in: Greater than 2 days - Advance Directives Does patient have a Living Will: No Does patient have a Durable POA for Healthcare: No - Code Status/Comfort Care Code Status: Full Code Critical Care: No Time Spent Managing PTS Care (In Minutes): 35
[2020-09-08] MEDS: predniSONE 20 MG TAB PO SCH ×2 (10:45→21:00)
[2020-09-08] MEDS: TRAMADOL 37.5mg/APAP 325mg PER TAB PO PRN (10:45)
[2020-09-08] MEDS: ENOXAPARIN 40 MG/0.4 ML SQ SCH (10:46)
[2020-09-08] MEDS: levoFLOXacin 750 MG TAB PO SCH (10:46)
[2020-09-08] MEDS ORDERED: ONDANSETRON 4 MG/2 ML VIAL IV PRN (10:51)
--- NOTE | 2020-09-08 13:01 | P.PN ---
Subjective Date of Service: 09/08/20 Chief Complaint: Right-sided pleural effusion and pneumonia and pneumothorax Subjective: Improving (Patient is doing better was pneumothorax is significantly improved chest tube was repositioned) Physical Examination - Vital Signs Temperature: 98.3 F Blood Pressure: 117/77 Pulse: 91 Respirations: 21 Pulse Ox (%): 97 - Studies Medications List Reviewed: Yes Assessment & Plan - Problems (Diagnosis) (1) Pleural effusion Current Visit: Yes Status: Acute Plan: Effusion is probably due to the pneumonia patient is clinically improving patient's chest tube was not suction if she does not have any recurrent pneumothorax the plan to remove the chest tube if aches clamped for few hr and is no pneumothorax probably a parapneumonic effusion continue with levofloxacin chest x-rays improving cytology is still pending (2) COVID-19 Current Visit: Yes Status: Acute Plan: Patient is positive for stanley virus
[2020-09-08] MEDS: MORPHINE 4 MG/ML SYR IV PRN (13:31)
--- NOTE | 2020-09-08 14:49 | RAD REPORT ---
EXAM DESCRIPTION: [facility] Single View09/08/2020 2:05 pm CLINICAL HISTORY: Chest pain COMPARISON: September 08, 2020 FINDINGS: Right chest tube has its tip overlying the mid right hemithorax. It appears to have been r etracted a little bit. The right pneumothorax has increased in size and is moderate No other significant change IMPRESSION: Moderate right pneumothorax. Patient's nurse Catalina was notified 2:44 p.m. September 08, 2020
--- NOTE | 2020-09-08 16:45 | RAD REPORT ---
EXAM DESCRIPTION: RADChest Single View09/08/2020 4:16 pm CLINICAL HISTORY: Pneumothorax COMPARISON: 09/08/2020 FINDINGS: Right pneumothorax is decreased in size and is relatively small. Right chest tube remains in place No other change noted
[2020-09-08] MEDS ORDERED: NA CHLORIDE 0.9% 500 ML IV ONE (17:28)
[2020-09-08] MEDS ORDERED: NA CHLORIDE 0.9% 1,000 ML IV SCH (18:00)
[2020-09-09] MEDS: METOPROLOL TAR 25 MG TAB PO SCH ×2 (06:10→19:17)
[2020-09-09] MEDS: TRAMADOL 37.5mg/APAP 325mg PER TAB PO PRN ×2 (06:12→19:19)
[2020-09-09 07:05] LABS: Absolute Lymphocytes (CBC) 0.7 K/uL (0.7-4.9); Basophils % 0.4 % (0-1.3); Lymphocytes % 6.4 % (15.3-44.8); MPV 8.6 fL (7.6-11.3); RBC Red Blood Cell Count 4.13 M/uL (3.86-4.86)
[2020-09-09 07:27] LABS: ALT/SGPT 31 U/L (12-78); AST/SGOT 23 U/L (15-37); Albumin 2.5 g/dL (3.4-5.0); Alkaline Phosphatase 58 U/L (45-117); BUN Blood Urea Nitrogen 11 mg/dL (7-18); Bicarbonate 31 mmol/L (21-32); Bilirubin Total 0.3 mg/dL (0.2-1.0); C-Reactive Protein 12.2 mg/L (<3.00); Ferritin 22.4 ng/mL (8-388); Glucose Level 150 mg/dL (74-106); Magnesium 2.1 mg/dL (1.8-2.4); NT PRO-BNP 272 pg/mL (<125); Phosphorus 2.7 mg/dL (2.5-4.9); Potassium 4.1 mmol/L (3.5-5.1); Protein, Total 5.4 g/dL (6.4-8.2); Sodium Level 138 mmol/L (136-145)
[2020-09-09 08:53] LABS: Blood Morphology Comment NOT SEEN (NOT SEEN); Platelet Estimate ADEQ; White Blood Cell Scan OK (OK)
--- NOTE | 2020-09-09 09:08 | RAD REPORT ---
EXAM DESCRIPTION: RAD - Chest Single View - 09/09/2020 8:53 am CLINICAL HISTORY: recheck pneumothorax COMPARISON: September 08 imaging TECHNIQUE: AP portable chest image was obtained 09/09/2020 8:53 am . FINDINGS: Right-sided chest tube remains in place. Lung parenchymal opacification has shown further clearing. Pneumothorax has reduced in size with only a trace amount of pneumothorax at the apex (less than 5%). Heart and vasculature are normal. No measurable pleural fluid. Delete select IMPRESSION: Pneumothorax has significantly improved, now seen as only a trace amount of pneumothorax at the right apex (less than 5%). Further clearing of the lung parenchymal opacification since prior day imaging.
[2020-09-09] MEDS: ENOXAPARIN 40 MG/0.4 ML SQ SCH (09:36)
[2020-09-09] MEDS: levoFLOXacin 750 MG TAB PO SCH (09:36)
[2020-09-09] MEDS: predniSONE 20 MG TAB PO SCH (09:36)
--- NOTE | 2020-09-09 09:56 | P.PN ---
Subjective Date of Service: 09/08/20 Patient is clinically doing better. No new complaints. Patient is still having some shoulder pain. Pneumothorax noted after clamping so placed back on suctioning. May need to get transfer to CT surgery it pneumothorax is not resolving pump. Review of Systems 10-point ROS is otherwise unremarkable Physical Examination - Vital Signs Temperature: 98 F Blood Pressure: 115/77 Pulse: 92 Respirations: 24 Pulse Ox (%): 98 - Physical Exam General: Alert, In no apparent distress, Oriented x3 Respiratory: Clear to auscultation bilaterally, Normal air movement, Diminished Cardiovascular: Regular rate/rhythm, Normal S1 S2, No murmurs Gastrointestinal: Normal bowel sounds, Soft and benign, Non-distended, No tenderness Musculoskeletal: No clubbing, No swelling, No tenderness Integumentary: No rashes Neurological: Normal speech, Normal tone, Normal affect Lymphatics: No axilla or inguinal lymphadenopathy - Studies Medications List Reviewed: Yes Assessment & Plan - Problems (Diagnosis) (1) Anasarca Current Visit: Yes Status: Acute (2) Ascites Current Visit: Yes Status: Acute (3) Hypoxemia Current Visit: Yes Status: Acute (4) Pleural effusion Current Visit: Yes Status: Acute (5) COVID-19 Current Visit: Yes Status: Acute - Plan Plan: Continue with plan of care as mentioned below 1. patient continues to slowly improve. Etiology of pleural effusion is unknown. Ascites has improved. Less fluid output. Pathology is pending. 2. Patient also COVID positive. As long as she is not requiring a large amount of oxygen then we may not need to do intravenous steroids. Will discuss this case with Pulmonary. 3. GI and DVT prophylaxis Discharge Plan: Home Plan to discharge in: Greater than 2 days - Advance Directives Does patient have a Living Will: No Does patient have a Durable POA for Healthcare: No - Code Status/Comfort Care Code Status: Full Code Critical Care: No Time Spent Managing PTS Care (In Minutes): 35
[2020-09-09] MEDS: MORPHINE 4 MG/ML SYR IV PRN (10:02)
--- NOTE | 2020-09-09 10:08 | P.PN ---
Subjective Date of Service: 09/08/20 Chief Complaint: Right-sided pleural effusion and pneumonia and pneumothorax Patient has significant symptomatic improvement, no longer has shortness of breath, but does have pain @ chest tube insertion site Physical Examination - Vital Signs Temperature: 98 F Blood Pressure: 115/77 Pulse: 92 Respirations: 26 Pulse Ox (%): 99 - Physical Exam General: Alert, In no apparent distress, Cooperative Respiratory: Other (small air leak in chest tube) - Studies Medications List Reviewed: Yes Assessment And Plan - Current Problems (Diagnosis) (1) Pleural effusion Current Visit: Yes Status: Acute Plan: - Chest tube to suction 40mm hg for now, then get daily chest x-rays, if improv ement noted, will place chest tube to water seal, then heimleich then DC - COVID-19 positive
--- NOTE | 2020-09-09 10:08 | P.PN ---
Subjective Date of Service: 09/09/20 Chief Complaint: Right-sided pleural effusion and pneumonia and pneumothorax Patient has significant symptomatic improvement, no longer has shortness of breath, but does have pain @ chest tube insertion site Physical Examination - Vital Signs Temperature: 98 F Blood Pressure: 115/77 Pulse: 92 Respirations: 26 Pulse Ox (%): 99 - Physical Exam General: Alert, In no apparent distress, Cooperative Respiratory: Other (chest tube with small air leak, placed back on suction yesterday) - Studies Medications List Reviewed: Yes Assessment And Plan - Current Problems (Diagnosis) (1) Pleural effusion Current Visit: Yes Status: Acute Plan: - Chest tube to suction 40mm hg for now, then get daily chest x-rays, if improvement noted, will place chest tube to water seal, then fercho then DC - COVID-19 positive - will consider pleurodesis if no resolution of air leak soon
--- NOTE | 2020-09-09 12:14 | P.PN ---
Subjective Date of Service: 09/09/20 Chief Complaint: Right-sided pleural effusion and pneumonia and pneumothorax Subjective: Improving (Patient is doing better animal effusion pneumothorax has improved infiltrate on the right side is also improved cytology is pending) Review of Systems Respiratory: Pleuritic Pain Physical Examination - Vital Signs Temperature: 98 F Blood Pressure: 115/77 Pulse: 92 Respirations: 26 Pulse Ox (%): 99 - Physical Exam General: Alert, Oriented x3 Respiratory: Clear to auscultation bilaterally Cardiovascular: No edema, Normal pulses - Studies Medications List Reviewed: Yes Assessment & Plan - Problems (Diagnosis) (1) Pleural effusion Current Visit: Yes Status: Acute Plan: Patient admitted with massive pleural effusion patient has atypical cells in the pleural fluid acid pleural effusion differential diagnosis includes a malignancy patient has also abdominal site plan to do a pleurodesis tomorrow (2) COVID-19 Current Visit: Yes Status: Acute Plan: Patient is positive for stanley virus
[2020-09-09] MEDS ORDERED: LIDOCAINE 2% INJ, 20 mL 10 ML, NA CHLORIDE 0.9% 40 ML TOP SCH ×2 (15:00)
[2020-09-09] MEDS ORDERED: POVIDONE-IODINE 20 ML, NA CHLORIDE 0.9% 80 ML TOP SCH ×2 (15:00)
[2020-09-09] MEDS: predniSONE 10 MG TAB PO SCH (20:49)
[2020-09-10 04:49] LABS: Absolute Lymphocytes (CBC) 1.3 K/uL (0.7-4.9); Basophils % 0.7 % (0-1.3); Hematocrit 36.2 % (36.0-45.0); MPV 9.1 fL (7.6-11.3); RBC Red Blood Cell Count 4.14 M/uL (3.86-4.86)
[2020-09-10 05:02] LABS: BUN Blood Urea Nitrogen 12 mg/dL (7-18); Bicarbonate 29 mmol/L (21-32); C-Reactive Protein 4.47 mg/L (<3.00); Ferritin 15.6 ng/mL (8-388); Glucose Level 118 mg/dL (74-106); NT PRO-BNP 291 pg/mL (<125); Sodium Level 140 mmol/L (136-145)
[2020-09-10] MEDS: METOPROLOL TAR 25 MG TAB PO SCH ×2 (05:33→17:07)
--- NOTE | 2020-09-10 08:13 | P.PN ---
Subjective Date of Service: 09/09/20 No new changes. Chest tube output minimal. Repeat chest x-ray in a.m. and possibly requiring pleurodesis Review of Systems 10-point ROS is otherwise unremarkable Physical Examination - Vital Signs Temperature: 97.2 F Blood Pressure: 160/97 Pulse: 78 Respirations: 20 Pulse Ox (%): 97 - Physical Exam General: Alert, In no apparent distress, Oriented x3 Respiratory: Other (Chest tube in place) Cardiovascular: Regular rate/rhythm, Normal S1 S2 Gastrointestinal: Soft and benign, Non-distended, No tenderness Musculoskeletal: No clubbing, No swelling Neurological: Normal speech, Normal strength at 5/5 x4 extr, Cranial nerves 3-12 intact Lymphatics: No axilla or inguinal lymphadenopathy - Studies Microbiology Data (last 24 hrs): 09/05/20 04:58 Blood - Blood Aerobic Blood Culture - Final No growth in 5 days. 09/05/20 04:58 Blood - Blood Anaerobic Blood Culture - Final No growth in 5 days. 09/05/20 04:40 Blood - Blood Aerobic Blood Culture - Final No growth in 5 days. 09/05/20 04:40 Blood - Blood Anaerobic Blood Culture - Final No growth in 5 days. Medications List Reviewed: Yes Assessment & Plan - Problems (Diagnosis) (1) Anasarca Current Visit: Yes Status: Acute (2) Ascites Current Visit: Yes Status: Acute (3) Hypoxemia Current Visit: Yes Status: Acute (4) Pleural effusion Current Visit: Yes Status: Acute (5) COVID-19 Current Visit: Yes Status: Acute - Plan Plan: Continue with plan of care as mentioned below 1. Etiology of pleural effusion of unknown. Gram stain and cultures negative. Cytology pending. 2. Possible pleurodesis in a.m. if recurrent pneumothorax 3. Patient also COVID positive. Patient is not hypoxic or symptomatic at this time unless pleural effusion was related to viral pneumonia 4. GI and DVT prophylaxis - Advance Directives Does patient have a Living Will: No Does patient have a Durable POA for Healthcare: No - Code Status/Comfort Care Code Status: Full Code
[2020-09-10] MEDS ORDERED: LIDOCAINE 2% TOP SCH ×2 (09:00)
[2020-09-10] MEDS ORDERED: NA CHLORIDE 0.9% TOP SCH ×2 (09:00)
[2020-09-10] MEDS ORDERED: POVIDONE-IODINE 20 ML, NA CHLORIDE 0.9% 80 ML TOP SCH ×2 (09:00)
[2020-09-10] MEDS: predniSONE 10 MG TAB PO SCH ×2 (09:34→20:54)
[2020-09-10] MEDS: levoFLOXacin 500 MG TAB PO SCH (09:37)
--- NOTE | 2020-09-10 10:31 | RAD REPORT ---
[facility] CLINICAL HISTORY: Pneumothorax COMPARISON: September 09 FINDINGS: Right chest tube has been clamped. The right pneumothorax has decreased in size and is eit her tiny or resolved. No other significant change
[2020-09-10] MEDS: ENOXAPARIN 40 MG/0.4 ML SQ SCH (11:00)
[2020-09-10] MEDS: MORPHINE 4 MG/ML SYR IV PRN ×2 (11:00→15:34)
--- NOTE | 2020-09-10 11:30 | P.OP ---
Date of Service: 09/10/20 (Iodine pleurodesis) Findings and Operative Technique Patient is 49 years of age admitted with massive right-sided pleural effusion discuss with pathology atypical cells suggestive of malignancy the patient chest tube was clamped and for 2 hr repeat chest x-ray did not show any significant pneumothorax After discussing the patient with through interpreted in [place]ri[place] and pleurodesis was performed as per protocol cyst to prevent recurrence of her pleural effusion will clamp the chest tube for 4 hr and an open up and placed on suction 40 cm possible discharge tomorrow
[2020-09-10] MEDS ORDERED: LACTULOSE 20 GM/30 ML UCUP PO PRN (11:35)
--- NOTE | 2020-09-10 20:25 | P.PN ---
Subjective Date of Service: 09/10/20 Patient is continuing to improve. Patient looks to be doing very well today. Patient may need pleurodesis. Appreciate General surgery & pulmonary consultation. Review of Systems 10-point ROS is otherwise unremarkable Physical Examination - Vital Signs Temperature: 98 F Blood Pressure: 123/78 Pulse: 113 Respirations: 22 Pulse Ox (%): 96 - Physical Exam General: Alert, In no apparent distress, Oriented x3 HEENT: Atraumatic, PERRLA, EOMI Neck: Supple, JVD not distended Respiratory: Diminished Cardiovascular: Regular rate/rhythm, Normal S1 S2, No murmurs Gastrointestinal: Normal bowel sounds, Soft and benign, Non-distended, No tenderness Musculoskeletal: No clubbing, No swelling, No tenderness Integumentary: No rashes Neurological: Normal speech, Normal tone, Sensation intact, Cranial nerves 3-12 intact - Studies Microbiology Data (last 24 hrs): 09/05/20 04:58 Blood - Blood Aerobic Blood Culture - Final No growth in 5 days. 09/05/20 04:58 Blood - Blood Anaerobic Blood Culture - Final No growth in 5 days. 09/05/20 04:40 Blood - Blood Aerobic Blood Culture - Final No growth in 5 days. 09/05/20 04:40 Blood - Blood Anaerobic Blood Culture - Final No growth in 5 days. Medications List Reviewed: Yes Assessment & Plan - Problems (Diagnosis) (1) Anasarca Current Visit: Yes Status: Acute (2) Ascites Current Visit: Yes Status: Acute (3) Hypoxemia Current Visit: Yes Status: Acute (4) Pleural effusion Current Visit: Yes Status: Acute (5) COVID-19 Current Visit: Yes Status: Acute - Plan Plan: Continue with plan of care as mentioned below 1. Patient says looks to be doing much better clinically. Pulmonary and General surgery to decide if patient will need pleurodesis over the next 24 hours. 2. Possible pleurodesis if recurrent pneumothorax 3. Patient also COVID positive. Patient is not hypoxic or otherwise symptomatic at this time-pleural effusion maybe related to viral pneumonia 4. GI and DVT prophylaxis Discharge Plan: Home Plan to discharge in: Greater than 2 days - Advance Directives Does patient have a Living Will: No Does patient have a Durable POA for Healthcare: No - Code Status/Comfort Care Code Status: Full Code Critical Care: No Time Spent Managing PTS Care (In Minutes): 35
[2020-09-11] MEDS: METOPROLOL TAR 25 MG TAB PO SCH ×2 (05:43→17:29)
[2020-09-11] MEDS: predniSONE 10 MG TAB PO SCH ×2 (08:36→20:06)
[2020-09-11] MEDS: levoFLOXacin 500 MG TAB PO SCH (08:36)
[2020-09-11] MEDS: ENOXAPARIN 40 MG/0.4 ML SQ SCH (08:36)
--- NOTE | 2020-09-11 11:40 | RAD REPORT ---
EXAM DESCRIPTION: RAD - Chest Single View - 09/11/2020 6:31 am CLINICAL HISTORY: Follow up form iodine pleurodesis Chest pain. COMPARISON: Chest Single View dated 09/10/2020; Chest Single View dated 09/09/2020; Chest Single View dated 09/08/2020; Chest Single View dated 09/08/2020 FINDINGS: Portable technique limits examination quality. Right-sided chest tube is in place directed cephalad. No measurable pneumothorax evident. The heart i s normal in size. Trace bilateral pleural effusions.
--- NOTE | 2020-09-11 13:00 | P.OP ---
Preoperative diagnosis: Resolving pleural effusion Postoperative diagnosis: Resolving pleural effusion Primary procedure: removal of RIGHT Thoracostomy Tube Anesthesia: none Estimated blood loss: none Specimen: none Findings: tube easily removed Complications: None Drain(s): Other Transferred to: ICU Condition: Fair
--- NOTE | 2020-09-11 13:03 | P.PN ---
Subjective Date of Service: 09/10/20 Chief Complaint: Right-sided pleural effusion and pneumonia and pneumothorax Patient has significant symptomatic improvement, no longer has shortness of breath, but does have pain @ chest tube insertion site Physical Examination - Vital Signs Temperature: 97.9 F Blood Pressure: 122/84 Pulse: 91 Respirations: 23 Pulse Ox (%): 96 - Physical Exam General: Alert, In no apparent distress, Cooperative Respiratory: Other (RIGHT chest tube in place, less fluid output) - Studies Medications List Reviewed: Yes Assessment And Plan - Current Problems (Diagnosis) (1) Pleural effusion Current Visit: Yes Status: Acute Plan: - COVID-19 positive - Patient just received pleurodesis with Dr. Hartman
--- NOTE | 2020-09-11 18:01 | RAD REPORT ---
EXAM DESCRIPTION: RAD - Chest Single View - 09/11/2020 5:50 pm CLINICAL HISTORY: s/p chest tube removal Chest pain. COMPARISON: Chest Single View dated 09/11/2020; Chest Single View dated 09/10/2020; Chest Single View dated 09/09/2020; Chest Single View dated 09/08/2020 FINDINGS: Portable technique limits examination quality. The right chest tube has been removed. There appears to be a small less than 5% right apical pneumoth orax. Small right pleural effusion. The heart size is mildly prominent. IMPRESSION: Interval chest tube removal. Small right apical pneumothorax less than 5%.
--- NOTE | 2020-09-11 19:07 | P.PN ---
Subjective Date of Service: 09/11/20 Patient is doing well with no new complaints. She appears to be doing much better. Chest tube will be removed tomorrow. Patient had pleurodesis and will repeat chest x-ray in a.m. Follow with Pulmonary for pathology results. Review of Systems 10-point ROS is otherwise unremarkable Physical Examination - Vital Signs Temperature: 98 F Blood Pressure: 144/97 Pulse: 121 Respirations: 29 Pulse Ox (%): 92 - Physical Exam General: Alert, In no apparent distress, Oriented x3 Respiratory: Other (Patient breathing comfortably. Chest tube is in place) Cardiovascular: Other (Rhythm is normal) Gastrointestinal: Soft and benign, Non-distended Musculoskeletal: No clubbing, No swelling - Studies Medications List Reviewed: Yes Assessment & Plan - Problems (Diagnosis) (1) Anasarca Current Visit: Yes Status: Acute (2) Ascites Current Visit: Yes Status: Acute (3) Hypoxemia Current Visit: Yes Status: Acute (4) Pleural effusion Current Visit: Yes Status: Acute (5) COVID-19 Current Visit: Yes Status: Acute - Plan Plan: 1. Plan to remove chest tube today. Possible discharge after chest tube is removed. Will repeat chest x-ray 2. Follow-up with Pulmonary; pathology is apparently showing atypical cells per Pulmonary which is suggestive of a possible malignancy. Outpatient follow-up in 1-2 weeks Discharge Plan: Home Plan to discharge in: 24 Hours - Advance Directives Does patient have a Living Will: No Does patient have a Durable POA for Healthcare: No - Code Status/Comfort Care Code Status: Full Code Critical Care: No Time Spent Managing PTS Care (In Minutes): 25
[2020-09-12] MEDS: METOPROLOL TAR 25 MG TAB PO SCH (05:07)
[2020-09-12 05:49] LABS: Absolute Lymphocytes (CBC) 1.9 K/uL (0.7-4.9); Basophils % 0.6 % (0-1.3); Hematocrit 37.2 % (36.0-45.0); Lymphocytes % 13.4 % (15.3-44.8); MPV 8.9 fL (7.6-11.3); RBC Red Blood Cell Count 4.31 M/uL (3.86-4.86)
--- NOTE | 2020-09-12 06:52 | P.PN ---
Subjective Date of Service: 09/12/20 Chief Complaint: Possible malignant effusion Subjective: Improving (Doing well no complaints animal drainage from the wound no evidence of recurrent pneumothorax) Physical Examination - Vital Signs Temperature: 97.7 F Blood Pressure: 125/91 Pulse: 101 Respirations: 20 Pulse Ox (%): 95 - Studies Medications List Reviewed: Yes Assessment & Plan - Problems (Diagnosis) (1) Pleural effusion Current Visit: Yes Status: Acute Plan: Patient's pleural fluid is suspicious for malignant cells awaiting final path report chest tube removed yesterday chest x-ray today does not show any evidence of pneumothorax radiology report is still pending plan to discharge today does not need any steroids no antibiotics are infiltrate has resolved plan to follow with me in 1 or 2 weeks (2) COVID-19 Current Visit: Yes Status: Acute Plan: Patient is positive for stanley virus no antibiotics of steroids needed
--- NOTE | 2020-09-12 07:45 | P.DS ---
Admission Date: 09/05/20 Discharge Date: 09/12/20 Primary Care Provider: Didi Colon NP Disposition: ROUTINE DISCHARGE Discharge Condition: GOOD Reason for Admission: Possible malignant effusion Consultations: Surgery-Dr. Gonzalez Pulmonary-Dr. Dawkins Procedures: CT Chest: FINDINGS: A chest tube is present within the anterior right base. The tip crosses midline and lies adjacent to the sternum and heart. A pneumothorax estimated to be 20-25% is present. Marked alveolar opacities are present within the right lung. A small amount of subcutaneous emphysema No mediastinal or hilar lymphadenopathy is seen. Small right pleural effusion. A pericardial effusion is not seen. IMPRESSION: The tip of a chest tube lies between the sternum and heart to the left of midline. Right pneumothorax estimated to be 20-25% Large amount of alveolar opacities right lung could represent pulmonary edema or pneumonia CT Scan: FINDINGS: CHEST: Lungs: There is complete collapse of the right lung. Left lung clear. Pleural space: Large right pleural effusion opacifies the right hemithorax. No pneumothorax. Heart: No abnormality noted. Mediastinum: There is mediastinal shift to the left. Thyroid: No abnormality noted. ABDOMEN: Liver: No abnormality noted. Gallbladder and bile ducts: No abnormality noted. No calcified stones. No ductal dilation. Pancreas: Homogeneous enhancement. No mass, inflammation or ductal dilation. Spleen: Visualized portions appear normal. Adrenals: Visualized portions appear normal. Kidneys and ureters: Benign cyst right kidney. Left kidney appears normal. Stomach and bowel: Limited assessment of the intestinal tract by respiratory motion. No obstruction. Moderate stool. PELVIS: Appendix: No findings to suggest acute appendicitis. Bladder: No filling defects to suggest mass or large stone. No inflammation. Reproductive: Visualized portions appear normal. CHEST, ABDOMEN and PELVIS: Intraperitoneal space: Moderate to large amounts of diffuse ascitic fluid in present throughout the abdomen and pelvis. Material identified in the dependent portion of the pelvic fluid. There is diffuse edematous change throughout the omentum and lesser edema throughout the mesentery. Retroperitoneal space: No abnormality noted. No fluid collection. Bones/joints: No acute fracture or osseous destruction. Soft tissues: Visualized portions appear normal. Vasculature: No abnormality noted. No aortic aneurysm. Lymph nodes: No enlarged lymph nodes. IMPRESSION: 1. Large right pleural effusion with collapse of the right lung and mediastinal shift to the left. 2. Large amounts of ascites in the abdomen or pelvis. There is some solid material in the pelvic portion of the ascitic fluid. Surgery: Surgeon: Ralph Wilson MD, Preoperative Diagnosis: Right pleural effusion. Postoperative Diagnosis: Right pleural effusion. Procedure Performed: Placement of right thoracostomy tube. Anesthesia: Local 1% lidocaine used. Estimated Blood Loss: Less than 2 mL. Specimens: Pleural fluid sent. Findings: Straw-colored pleural fluid, nonbloody tap. Complications: None. Drains: A Thal small bore chest tube was left in place. ECHO: EF 74% LEFT VENTRICULAR WALL MOTION: NORMAL DOPPLER/COLOR FLOW: NORMAL COMMENTS: HYPERDYNAMIC LEFT VENTRICLE WITH LEFT VENTRICULAR EJECTION FRACTION >70%. NORMAL WALL MOTION. DIASTOLIC DYSFUNCTION. Medical Problem List: Dyspnea, hypoxia, anasarca, ascites, right pleural effusion status post placement of right thoracostomy tube with pleurodesis followed by chest tube removal chest tube, final pathology pending but suspicious for cancer Acute on chronic diastolic CHF HTN COVID 19 Positive Chronic constipation Brief History of Present Illness: 49-year-old female without major medical problems presented to the emergency room with ascites, dyspnea. Patient was worked up in the emergency room. She was found have a large right sided pleural effusion with ascites. Patient required chest tube placement. Patient admitted for further evaluation and treatment. Surgery and pulmonology were consulted. Hospital Course: Patient presented with dyspnea, hypoxia, anasarca, and ascites. Patient found to have right large pleural effusion. Patient required right thoracostomy tube placement by surgery. During the course of her workup patient was found to be positive for COVID 19. Her inflammatory markers were not significantly elevated. Patient received oral prednisone. Patient was seen by pulmonology as well. Pulmonology did perform a pleurodesis prior to removal of chest tube. No infectious process was identified. Pathology shows atypical cells suggestive of possible underlying malignancy. At discharge she is without significant chest pain or shortness of breath. The patient will follow up with pulmonology within 1 week to go over pathology report and further evaluation. Recommend to recheck chest x-ray in 2-4 weeks to monitor resolution. No need for home oxygen needed at this time. Patient found to have hypertension. Patient was placed on metoprolol. Echocardiogram also revealed diastolic dysfunction. Patient likely with acute on chronic diastolic CHF. Patient stable this time. At discharge patient will continue with metoprolol 25 mg 1 pill twice daily. Recommend to maintain blood pressure less than 150/80. Further adjustment can be done by her PCP. Patient will continue with a 1500 cc per day fluid restriction and low-salt diet. Recommend to monitor weight daily. If her weight increases by more than 5 lb she is to contact her PCP or pulmonology for further recommendation. Patient was positive for COVID 19. Patient was seen by pulmonology. Patient received steroids during her stay. Inflammatory markers have improved. At discharge patient without the need for oxygen. No need for further steroids at this time. As mentioned above patient will follow up with pulmonology to further monitor and address. Patient will continue with COVID 19 instructions including facemask use, hand washing and social distancing. Continue with isolation instructions for COVID 19. Patient with chronic constipation. Patient will be given lactulose twice daily as needed. Recommend follow up with GI as an outpatient to further address. Patient will likely require EGD, colonoscopy in the near future to further evaluate. Vital Signs/Physical Exam: Temp Pulse Resp BP Pulse Ox 97.7 F 101 H 20 125/91 H 95 09/12/20 06:52 09/12/20 06:52 09/12/20 06:52 09/12/20 06:52 09/12/20 06:52 General: Alert, In no apparent distress, Oriented x3, Cooperative HEENT: Atraumatic Neck: Supple Respiratory: Other (Patient breathing appropriately. No requirement for oxygen required.) Cardiovascular: Normal pulses Gastrointestinal: No tenderness Neurological: Normal speech, Normal strength at 5/5 x4 extr, Normal tone, Normal affect Laboratory Data at Discharge: WBC 14.2 K/uL (4.3-10.9) H 09/12/20 05:22 Hgb 13.0 g/dL (12.0-15.0) 09/12/20 05:22 Hct 37.2 % (36.0-45.0) 09/12/20 05:22 Plt Count 350 K/uL (152-406) 09/12/20 05:22 PT 12.8 SECONDS (9.5-12.5) H 09/05/20 04:40 INR 1.09 09/05/20 04:40 APTT 28.9 SECONDS (24.3-36.9) 09/05/20 04:40 Sodium 140 mmol/L (136-145) 09/10/20 04:16 Potassium 4.0 mmol/L (3.5-5.1) 09/10/20 04:16 BUN 12 mg/dL (7-18) 09/10/20 04:16 Creatinine 0.64 mg/dL (0.55-1.3) 09/10/20 04:16 Glucose 118 mg/dL (74-106) H 09/10/20 04:16 Phosphorus 2.7 mg/dL (2.5-4.9) 09/09/20 06:45 Magnesium 2.0 mg/dL (1.8-2.4) 09/10/20 04:16 Total Bilirubin 0.3 mg/dL (0.2-1.0) 09/09/20 06:45 AST 23 U/L (15-37) 09/09/20 06:45 ALT 31 U/L (12-78) 09/09/20 06:45 Alkaline Phosphatase 58 U/L (45-117) 09/09/20 06:45 Troponin I < 0.02 ng/mL (0.0-0.045) 09/05/20 13:00 Amylase 49 U/L (25-115) 09/05/20 04:40 Lipase 139 U/L (73-393) 09/05/20 04:40 Home Medications: Lactulose [Cephulac*] 30 ml PO BID PRN #1 bottle 09/12/20 Metoprolol Tartrate [Lopressor*] 25 mg PO BID 6AM 6PM #60 tab 09/12/20 New Medications: Lactulose [Cephulac*] 30 ml PO BID PRN #1 bottle PRN Reason: Constipation Metoprolol Tartrate [Lopressor*] 25 mg PO BID 6AM 6PM #60 tab Patient Discharge Instructions: 1. Recommend follow up with PCP in 1 week to follow up this hospitalization. 2. Patient presented with dyspnea, hypoxia, anasarca, and ascites. Patient found to have right large pleural effusion. Pat ient required right thoracostomy tube placement by surgery. During the course of her workup patient was found to be positive for COVID 19. Her inflammatory markers were not significantly elevated. Patient received oral prednisone. Patient was seen by pulmonology as well. Pulmonology did perform a pleurodesis prior to removal of chest tube. No infectious process was identified. Pathology shows atypical cells suggestive of possible underlying malignancy. At discharge she is without significant chest pain or shortness of breath. The patient will follow up with pulmonology within 1 week to go over pathology report and further evaluation. Recommend to recheck chest x-ray in 2-4 weeks to monitor resolution. No need for home oxygen needed at this time. 3. Patient found to have hypertension. Patient was placed on metoprolol. Echocardiogram also revealed diastolic dysfunction. Patient likely with acute on chronic diastolic CHF. Patient stable this time. At discharge patient will continue with metoprolol 25 mg 1 pill twice daily. Recommend to maintain blood pressure less than 150/80. Further adjustment can be done by her PCP. Patient will continue with a 1500 cc per day fluid restriction and low-salt diet. Recommend to monitor weight daily. If her weight increases by more than 5 lb she is to contact her PCP or pulmonology for further recommendation. 4. Patient was positive for COVID 19. Patient was seen by pulmonology. Patient received steroids during her stay. Inflammatory markers have improved. At discharge patient without the need for oxygen. No need for further steroids at this time. As mentioned above patient will follow up with pulmonology to further monitor and address. Patient will continue with COVID 19 instructions including facemask use, hand washing and social distancing. Continue with isolation instructions for COVID 19. 5. Patient with chronic constipation. Patient will be given lactulose twice daily as needed. Recommend follow up with GI as an outpatient to further address. Patient will likely require EGD, colonoscopy in the near future to further evaluate. Diet: AHA Activity: Ad estefania Time spent managing pt's care (in minutes): 55
[2020-09-12 08:45] VITALS: TEMP 97.1
--- NOTE | 2020-09-12 08:49 | RAD REPORT ---
EXAM DESCRIPTION: RAD - Chest Single View - 09/12/2020 7:07 am CLINICAL HISTORY: pneumonia Chest pain. COMPARISON: Chest Single View dated 09/11/2020; Chest Single View dated 09/11/2020; Chest Single View dated 09/10/2020; Chest Single View dated 09/09/2020 FINDINGS: Portable technique limits examination quality. Small right lung base opacity and pleural fluid is present, slightly progressive since comparative st [facility] and probably representing a mild infiltrate. Previously noted right apical small residual pneumot horax is not clearly visible on today's study. The heart is mildly enlarged in size.
[2020-09-12] MEDS: predniSONE 10 MG TAB PO SCH (08:56)
[2020-09-12] MEDS: ENOXAPARIN 40 MG/0.4 ML SQ SCH (08:56)
[2020-09-12 12:47] VITALS: O2SAT 97
[2020-09-12 14:09] VITALS: BP 115/81
== END 2020-09-12 14:55 | disposition home or self-care (01) | DRG 843 ==
LOC: ER 03:57 → ERHOLD 08:23 → 3RD-ICU 15:46
PROVIDERS: ADMIT Hospitalist; ATTEND Family Medicine
PROC: 0W9930Z Drainage of Right Pleural Cavity with Drainage Device, Percutaneous Approach (ICD-10-PCS; principal; 2020-09-05)
PROC: 3E0L3GC Introduction of Other Therapeutic Substance into Pleural Cavity, Percutaneous Approach (ICD-10-PCS; 2020-09-10)
PROC: 0BPQ30Z Removal of Drainage Device from Pleura, Percutaneous Approach (ICD-10-PCS; 2020-09-11)
DX: C80.1 Malignant (primary) neoplasm, unspecified (principal); U07.1 COVID-19; J12.89 Other viral pneumonia; I50.33 Acute on chronic diastolic (congestive) heart failure; R18.8 Other ascites; J93.9 Pneumothorax, unspecified; J91.0 Malignant pleural effusion; I11.0 Hypertensive heart disease with heart failure; K59.09 Other constipation; Z79.899 Other long term (current) drug therapy
CPT/HCPCS: 36415; 71045; 71260; 74177; 80048; 80053; 80076; 81001; 82150; 82550; 82553; 82565; 82728; 82947; 83605; 83690; 83735; 83880; 84100; 84145; 84484; 85025; 85610; 85730; 86140; 87040; 87070; 87086; 87088; 87102; 87804; 88108; 88305; 89050; 93005; 93306; 94640; 96365; 99285; J0456; J0696; J1650; J2405; J7030; J7040; J7050; J7512; Q9967; U0003

== ENCOUNTER 2020-10-04 05:41 | Emergency (ER) | payer OTHER, SELFPAY ==
[2020-10-04 06:16] LABS: Absolute Lymphocytes (CBC) 1.7 K/uL (0.7-4.9); Basophils % 0.5 % (0-1.3); Hematocrit 39.9 % (36.0-45.0); Lymphocytes % 15.7 % (15.3-44.8); MPV 7.9 fL (7.6-11.3); RBC Red Blood Cell Count 4.63 M/uL (3.86-4.86)
[2020-10-04 06:31] LABS: ALT/SGPT 35 U/L (12-78); AST/SGOT 31 U/L (15-37); Albumin 2.9 g/dL (3.4-5.0); Alkaline Phosphatase 101 U/L (45-117); BUN Blood Urea Nitrogen 14 mg/dL (7-18); Bicarbonate 36 mmol/L (21-32); Bilirubin Direct < 0.1 mg/dL (0-0.2); Bilirubin Total 0.4 mg/dL (0.2-1.0); Glucose Level 119 mg/dL (74-106); Lipase 139 U/L (73-393); Potassium 3.3 mmol/L (3.5-5.1); Protein, Total 6.9 g/dL (6.4-8.2); Sodium Level 130 mmol/L (136-145)
[2020-10-04 06:35] LABS: Protime INR 1.15
[2020-10-04] MEDS ORDERED: NA CHLORIDE 0.9% 500 ML ONE (06:40)
[2020-10-04] MEDS ORDERED: MORPHINE 2 MG/ML SYR ONE (06:40)
[2020-10-04] MEDS ORDERED: ONDANSETRON 4 MG/2 ML VIAL ONE (06:40)
[2020-10-04 06:46] LABS: Urine Blood TRACE (NEG); Urine Glucose NEGATIVE (NEG); Urine Protein 1+ (NEG); Urine Specific Gravity 1.025 (1.005-1.030); Urine pH 5.5 (5.0-7.0)
[2020-10-04 07:02] LABS: NT PRO-BNP 87 pg/mL (<125); Troponin (Emerg Dept Use Only) < 0.02 ng/mL (0.0-0.045)
[2020-10-04 07:05] LABS: Magnesium 2.5 mg/dL (1.8-2.4)
--- NOTE | 2020-10-04 07:23 | RAD REPORT ---
EXAM DESCRIPTION: CT - Chest Abdomen Pelvis W Cont - 10/04/2020 7:05 am CLINICAL HISTORY: Abdominal distention;Dyspnea, chest pain COMPARISON: Chest Abdomen Pelvis W Cont dated 09/05/2020; Chest Single View dated 09/12/2020; Thorax W/ Con dated 09/06/2020 TECHNIQUE: Following dynamic enhancement using 100 milliliters nonionic IV contrast, axial imaging o f the chest, abdomen and pelvis was performed. Biphasic technique was utilized through the abdomen. No oral contrast administered. All CT scans are performed using dose optimization technique as appropriate and may include automated exposure control or mA/KV adjustment according to patient size. FINDINGS: Right-sided chest tube was removed in the interval since the September 06 CT chest study. Ve ry large pleural effusion is again seen filling nearly the entirety of the right hemithorax. There is a small portion of the right upper lobe that is aerated. Left mediastinal shift has recurrent. An un derlying mass or obstructive process is not identifiable. Etiology for the pleural effusion is not ap parent. No left-sided pleural effusion and no mass or infiltrate of the left lung field. No pneumothorax. No significant aortic or pulmonary arterial tree finding. Mediastinal and hilar regions show no mass or abnormal lymphadenopathy. No chest wall mass or axillary lymphadenopathy. No cardiomegaly or pericard ial effusion. The liver, spleen and pancreas show no suspicious findings. Gallbladder and biliary tree are unremark able. Gallstones can be occult on CT imaging. Symmetric renal function is seen with no mass or hydro nephrosis. No adrenal abnormalities. Normal size uterus is present with no suspicious findings. There is fullness to both ovaries and a 2. 4 centimeter hypodense or cystic area associated with or adjacent to the left ovary. Omental thickeni ng and slight nodularity is present. It is uncertain if this is part of the overall ascites or pathol ogic omental caking. The volume of ascites is similar to the August study. No dilated bowel loops or focal bowel wall thickening. No acute GI findings seen. No acute or destructive bony process. No significant vascular findings. IMPRESSION: Very large right pleural effusion has recurrent, filling the right hemithorax with only a small portion of the right upper lobe aerated. Significant left shift of the mediastinal structures has also occurred. No underlying mass or etiology for the pleural effusion evident on imaging. Large volume of ascites is again noted similar in volume to August imaging. Omental thickening or n odularity is seen which could be part of ascites or pathologic. No focal abnormality of the solid abdominal viscera. No GI acute finding seen. Patient has general fu llness to the ovaries but no grossly malignant ovarian process seen.
--- NOTE | 2020-10-04 08:29 | RAD REPORT ---
EXAM DESCRIPTION: RAD - Chest Single View - 10/04/2020 7:27 am CLINICAL HISTORY: Cough;Abdominal distention COMPARISON: Portable September 12, CT imaging October 04 TECHNIQUE: AP portable chest image was obtained 10/04/2020 7:27 am . FINDINGS: Large right pleural effusion has recurred since the September 12 imaging. Patient has a smal l portion of the right upper lobe still aerated. Left mediastinal shift is present. Left lung field i s clear. Heart and vasculature are normal. No hydropneumothorax or left-sided pleural effusion. No ac [facility] bony abnormality seen. No acute aortic findings suspected. IMPRESSION: Reaccumulation of large right pleural effusion. A small portion of the right upper lobe remains aerated.
[2020-10-04] MEDS ORDERED: NS KCL 20MEQ 1,000 ML IV ONE (08:42)
--- NOTE | 2020-10-04 09:34 | EDPHYS ---
Physician Documentation [facility] Name: Angeles Carmona Age: 49 yrs Sex: Female : 1970 Arrival Date: 10/04/2020 Time: 05:43 Bed 17 Private MD: ED Physician Alonso Epstein HPI: 10/04 06:17 This 49 yrs old Female presents to ER via Ambulatory with complaints of Back dale Pain, Abdominal Pain. 06:17 The patient presents with pain that is acute, with no known mechanism of injury. dale 06:17 The patient presents with abdominal pain in the lower abdomen. Onset: The dale symptoms/episode began/occurred 2 day(s) ago. The symptoms are located in the low back. Onset: The symptoms/episode began/occurred 2 day(s) ago. The pain does not radiate. Modifying factors: The patient symptoms are alleviated by nothing, the patient symptoms are aggravated by any movement. Severity of symptoms: At their worst the symptoms were mild, in the emergency department the symptoms are actually worse. 06:19 Associated signs and symptoms: Pertinent positives: abdominal pain, constipation. dale Severity of pain: At its worst the pain was moderate in the emergency department the pain is unchanged. The patient has not experienced similar symptoms in the past. 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 - Social history:: Smoking status: Patient denies any tobacco usage or history of. Patient/guardian denies using alcohol, street drugs, IV drugs. - Family history:: not pertinent. ROS: 06:19 Constitutional: Negative for fever, chills, and weight loss, Eyes: Negative for injury, dale pain, redness, and discharge, ENT: Negative for injury, pain, and discharge, Neck: Negative for injury, pain, and swelling, Cardiovascular: Negative for chest pain, palpitations, and edema, Back: Negative for injury and pain, : Negative for injury, bleeding, discharge, and swelling, MS/Extremity: Negative for injury and deformity, Skin: Negative for injury, rash, and discoloration, Neuro: Negative for headache, weakness, numbness, tingling, and seizure, Psych: Negative for depression, anxiety, suicide ideation, homicidal ideation, and hallucinations, Allergy/Immunology: Negative for hives, rash, and allergies, Endocrine: Negative for neck swelling, polydipsia, polyuria, polyphagia, and marked weight changes, Hematologic/Lymphatic: Negative for swollen nodes, abnormal bleeding, and unusual bruising. 06:19 Respiratory: Positive for cough, shortness of breath, at rest. Exam: 06:19 Constitutional: This is a well developed, well nourished patient who is awake, alert, dale and in no acute distress. Head/Face: Normocephalic, atraumatic. Eyes: Pupils equal round and reactive to light, extra-ocular motions intact. Lids and lashes normal. Conjunctiva and sclera are non-icteric and not injected. Cornea within normal limits. Periorbital areas with no swelling, redness, or edema. ENT: Nares patent. No nasal discharge, no septal abnormalities noted. Tympanic membranes are normal and external auditory canals are clear. Oropharynx with no redness, swelling, or masses, exudates, or evidence of obstruction, uvula midline. Mucous membranes moist. Neck: Trachea midline, no thyromegaly or masses palpated, and no cervical lymphadenopathy. Supple, full range of motion without nuchal rigidity, or vertebral point tenderness. No Meningismus. Chest/axilla: Normal chest wall appearance and motion. Nontender with no deformity. No lesions are appreciated. Back: No spinal tenderness. No costovertebral tenderness. Full range of motion. Skin: Warm, dry with normal turgor. Normal color with no rashes, no lesions, and no evidence of cellulitis. MS/ Extremity: Pulses equal, no cyanosis. Neurovascular intact. Full, normal range of motion. Neuro: Awake and alert, GCS 15, oriented to person, place, time, and situation. Cranial nerves II-XII grossly intact. Motor strength 5/5 in all extremities. Sensory grossly intact. Cerebellar exam normal. Normal gait. Psych: Awake, alert, with orientation to person, place and time. Behavior, mood, and affect are within normal limits. 06:19 Cardiovascular: Rate: tachycardic, actual rate is 124 bpm, Rhythm: regular, Pulses: Pulses are 4+ in bilateral radial, brachial, femoral, popliteal, posterior tibial and and dorsalis pedis arteries.. Heart sounds: normal, normal S1and S2, no S3 or S4, no murmur, no rub, no gallop, Edema: is not appreciated, JVD: is not appreciated. 06:19 Respiratory: the patient does not display signs of respiratory distress, Respirations: normal, no acute changes, Breath sounds: decreased breath sounds, that are moderate, are heard in the right middle lobe, right lower lobe, right posterior middle lobe and right posterior lower lobe. 06:19 Abdomen/GI: Inspection: distension, Bowel sounds: active, Palpation: moderate abdominal tenderness, in the right lower quadrant and left lower quadrant, Liver: no appreciated palpable abnormalities, Hernia: not appreciated. Vital Signs: 05:53 BP 113 / 72; Pulse 124; Resp 18; Temp 98.8; Pulse Ox 98% on R/A; Weight 79.38 kg; mg2 06:37 Pulse 116; mg2 07:30 BP 120 / 83; Pulse 116; Resp 15; Pulse Ox 96% ; jl7 09:40 BP 122 / 86; Pulse 118; Resp 17; Temp 99.5; Pulse Ox 95% ; jl7 10:30 BP 121 / 85; Pulse 117; Resp 16; Temp 99.5; Pulse Ox 96% ; jl7 MDM: 05:56 Patient medically screened. adle 06:23 Differential diagnosis: chronic back pain, Hydronephrosis Obesity Pyelonephritis dale non-specific abd pain, pancreatitis, urinary tract infection. Data reviewed: vital signs, nurses notes, diagnostic data from outside facility, lab test result(s), CBC, electrolytes, hepatic panel, EKG, radiologic studies, CT scan, plain films. Data interpreted: insurance plan specialist: rate is 124 beats/min, rhythm is regular. Test interpretation: by ED physician or midlevel provider: ECG, plain radiologic studies. Counseling: I had a detailed discussion with the patient and/or guardian regarding: the historical points, exam findings, and any diagnostic results supporting the discharge/admit diagnosis, lab results, radiology results. 08:35 ED course: Consulted with Dr. Dawkins, requests transfer for possible pleurodesis vs rn pleurx catheter, pathology revealed malignant cells but not sure about primary. . ED course: Initiated transfer. . 10/04 05:58 Order name: Basic Metabolic Panel [facility] 10/04 05:58 Order name: CBC with Diff [facility] 10/04 05:58 Order name: Hepatic Function [facility] 10/04 05:58 Order name: Lipase [facility] 10/04 05:59 Order name: Basic Metabolic Panel; Complete Time: 07:48 EDMS 10/04 05:59 Order name: CBC with Automated Diff; Complete Time: 06:17 EDMS 10/04 05:59 Order name: Liver (Hepatic) Function; Complete Time: 07:48 EDMS 10/04 05:59 Order name: Lipase; Complete Time: 07:48 EDKY 10/04 06:14 Order name: Urine Dipstick--Ancillary (enter results); Complete Time: 07:48 [facility] 10/04 06:14 Order name: Urine --Ancillary (enter results); Complete Time: 07:48 [facility] 10/04 06:16 Order name: Magnesium; Complete Time: 07:48 [facility] 10/04 06:16 Order name: NT PRO-BNP; Complete Time: 07:48 [facility] 10/04 06:16 Order name: PT-INR; Complete Time: 07:48 [facility] 10/04 06:16 Order name: Troponin (emerg Dept Use Only); Complete Time: 07:48 [facility] 10/04 05:58 Order name: IV Saline Lock; Complete Time: 06:20 [facility] 10/04 05:58 Order name: Labs collected and sent; Complete Time: 06:20 [facility] 10/04 06:16 Order name: XRAY Chest (1 view); Complete Time: 08:33 [facility] 10/04 06:16 Order name: EKG; Complete Time: 06:18 [facility] 10/04 06:16 Order name: Cardiac monitoring; Complete Time: 06:19 [facility] 10/04 06:16 Order name: EKG - Nurse/Tech; Complete Time: 06:32 [facility] 10/04 06:16 Order name: O2 Per Protocol; Complete Time: 06:19 [facility] 10/04 06:16 Order name: O2 Sat Monitoring; Complete Time: 06:20 [facility] 10/04 06:16 Order name: CT Chest, Abdomen, Pelvis - W/Contrast; Complete Time: 07:48 [facility] 10/04 06:16 Order name: Urine Dipstick-Ancillary (obtain specimen); Complete Time: 06:32 [facility] 10/04 06:16 Order name: Urine Culture [facility] 10/04 06:16 Order name: Urine Test (obtain specimen); Complete Time: 06:19 [facility] Administered Medications: 06:32 Drug: Zofran (Ondansetron) 4 mg Route: IVP; Site: right antecubital; mg2 07:00 Follow up: Response: No adverse reaction jl7 06:32 Drug: morphine 2 mg Route: IVP; Site: right antecubital; mg2 07:00 Follow up: Response: No adverse reaction; Pain is decreased jl7 06:33 Drug: NS 0.9% 500 ml Route: IV; Rate: bolus; Site: right antecubital; mg2 07:10 Follow up: IV Status: Completed infusion; IV Intake: 500ml jl7 08:35 Drug: NS 0.9% with KCl 20 mEq/L 1000 ml Route: IV; Rate: 100 ml/hr; Site: right jl7 antecubital; 11:00 Follow up: IV Status: Infusion continued upon transfer jl7 10:41 Drug: Tylenol 650 mg Route: PO; jl7 11:00 Follow up: Response: No adverse reaction jl7 Disposition: 10/04/20 09:[address] [facility]. Diagnosis are Malignant pleural effusion, Ascites. - Reason for transfer: Higher level of care. - Accepting physician is . - Condition is Stable. - Problem is an ongoing problem. - Symptoms have worsened. Signatures: Dispatcher [employer] EDJimmy Rodriguez MD MD cha Nieto, Roman, MD MD rn Leal, Jahala, RN RN jl7 Koffi Terry RN RN mg2 Corrections: (The following items were deleted from the chart) 11:41 09:34 10/04/2020 09:[address] [facility]. jl7 Diagnosis is Malignant pleural effusion; Ascites. Reason for transfer: Higher level of care. Accepting physician is . Condition is Stable. Problem is an ongoing problem. Symptoms have worsened. rn
--- NOTE | 2020-10-04 09:34 | ER ---
Nurse's Notes [facility] Name: Angeles Carmona Age: 49 yrs Sex: Female : 1970 Arrival Date: 10/04/2020 Time: 05:43 Bed 17 Private MD: Diagnosis: Malignant pleural effusion;Ascites Presentation: 10/04 05:53 Chief complaint: Spouse and/or significant other states: she has abdominal pain mg2 radiating to the back x 3 days. Coronavirus screen: Client denies travel out of the [place] in the last 14 days. Client reports previous positive COVID test result. Date of collection: August 2020. Ebola Screen: No symptoms or risks identified at this time. Initial Sepsis Screen: Does the patient meet any 2 criteria? No. Patient's initial sepsis screen is negative. Does the patient have a suspected source of infection? No. Patient's initial sepsis screen is negative. Risk Assessment: Do you want to hurt yourself or someone else? Patient reports no desire to harm self or others. Onset of symptoms was October 02, 2020. 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 - Social history:: Smoking status: Patient denies any tobacco usage or history of. Patient/guardian denies using alcohol, street drugs, IV drugs. - Family history:: not pertinent. Screenin:36 Abuse screen: Denies threats or abuse. Denies injuries from another. Nutritional mg2 screening: No deficits noted. Tuberculosis screening: No symptoms or risk factors identified. Fall Risk IV access (20 points). Assessment: 06:35 General: Appears in no apparent distress. comfortable, Behavior is calm, cooperative. mg2 Pain: Complains of pain in back and abdomen Pain currently is 6 out of 10 on a pain scale. Quality of pain is described as aching, Pain began gradually, Is intermittent. Neuro: Level of Consciousness is awake, alert, obeys commands, Oriented to person, place, time, situation. Cardiovascular: Capillary refill < 3 seconds Patient's skin is warm and dry. Respiratory: Airway is patent Respiratory effort is even, unlabored, Respiratory pattern is regular, symmetrical. GI: Abdomen is distended, Reports constipation. : No signs and/or symptoms were reported regarding the genitourinary system. EENT: No signs and/or symptoms were reported regarding the EENT system. Derm: Skin is intact, is healthy with good turgor, Skin is pink, warm \T\ dry. normal. Musculoskeletal: Circulation, motion, and sensation intact. Capillary refill < 3 seconds. 07:00 Reassessment: Patient appears in no apparent distress at this time. Patient and/or [facility] family updated on plan of care and expected duration. Pain level reassessed. Patient is alert, oriented x 3, equal unlabored respirations, skin warm/dry/pink. denies pain at this time. GI: Abdomen is round distended, Last BM was October 04, 2020. Bowel sounds present X 4 quads. Reports constipation. 08:00 Reassessment: Patient appears in no apparent distress at this time. No changes from jl7 previously documented assessment. Patient and/or family updated on plan of care and expected duration. Pain level reassessed. Patient is alert, oriented x 3, equal unlabored respirations, skin warm/dry/pink. 09:00 Reassessment: Patient appears in no apparent distress at this time. No changes from jl7 previously documented assessment. Patient and/or family updated on plan of care and expected duration. Pain level reassessed. Patient is alert, oriented x 3, equal unlabored respirations, skin warm/dry/pink. 10:00 Reassessment: Patient appears in no apparent distress at this time. No changes from jl7 previously documented assessment. Patient and/or family updated on plan of care and expected duration. Pain level reassessed. Patient is alert, oriented x 3, equal unlabored respirations, skin warm/dry/pink. Vital Signs: 05:53 BP 113 / 72; Pulse 124; Resp 18; Temp 98.8; Pulse Ox 98% on R/A; Weight 79.38 kg; mg2 06:37 Pulse 116; mg2 07:30 BP 120 / 83; Pulse 116; Resp 15; Pulse Ox 96% ; jl7 09:40 BP 122 / 86; Pulse 118; Resp 17; Temp 99.5; Pulse Ox 95% ; jl7 10:30 BP 121 / 85; Pulse 117; Resp 16; Temp 99.5; Pulse Ox 96% ; jl7 ED Course: 05:43 Patient arrived in ED. cl3 05:50 Koffi Terry, HERBERT is Primary Nurse. mg2 05:55 Inserted saline lock: 20 gauge in right antecubital area, using aseptic technique. mg2 Blood collected. 05:56 Triage completed. mg2 05:56 Jimmy Bernal MD is Attending Physician. dale 05:57 Arm band placed on. mg2 06:37 Patient has correct armband on for positive identification. Pulse ox on. NIBP on. Door mg2 closed. Warm blanket given. 06:37 No provider procedures requiring assistance completed. mg2 07:05 CT Chest, Abdomen, Pelvis - W/Contrast In Process Unspecified. EDMS 07:27 XRAY Chest (1 view) In Process Unspecified. EDMS 08:34 initiated a transfer with Bonifacio from the [facility]. eb 08:36 Attending Physician role handed off by Jimmy Bernal MD rn 08:36 Alonso Epstein MD is Attending Physician. rn 09:[address] Ambrose the insurance underwriter sales front desk coordinator for [facility] with Dr. Epstein for eb patient transfer consultation. 09:25 connected the family member caretaker front desk coordinator for [facility] with Dr. Epstein for patient eb transfer consultation. 09:44 administrative approval given by Jaimie Marquez from the [facility]/ eb Patient has been accepted to [facility] ER/ Dr. Porter has accepted the patient in transfer / Report to be called to the transfer center [phone]. 11:13 Patient transferred, IV remains in place. intact, No redness/swelling at site. jl7 Administered Medications: 06:32 Drug: Zofran (Ondansetron) 4 mg Route: IVP; Site: right antecubital; mg2 07:00 Follow up: Response: No adverse reaction jl7 06:32 Drug: morphine 2 mg Route: IVP; Site: right antecubital; mg2 07:00 Follow up: Response: No adverse reaction; Pain is decreased jl7 06:33 Drug: NS 0.9% 500 ml Route: IV; Rate: bolus; Site: right antecubital; mg2 07:10 Follow up: IV Status: Completed infusion; IV Intake: 500ml jl7 08:35 Drug: NS 0.9% with KCl 20 mEq/L 1000 ml Route: IV; Rate: 100 ml/hr; Site: right jl7 antecubital; 11:00 Follow up: IV Status: Infusion continued upon transfer jl7 10:41 Drug: Tylenol 650 mg Route: PO; jl7 11:00 Follow up: Response: No adverse reaction jl7 Intake: 07:10 IV: 500ml; Total: 500ml. jl7 Outcome: 09:34 ER care complete, transfer ordered by . rn 11:12 Transferred by ground EMS to [facility], Transfer form completed. jl7 X-rays sent w/ patient. 11:12 Condition: stable 11:12 Discharge instructions given to patient, family, Instructed on the need for transfer, Demonstrated understanding of instructions. 11:41 Patient left the ED. jl Signatures: Dispatcher [employer] Jimmy Bond MD MD cha Nieto, Roman, MD MD rn Leal, Jahala, RN RN jl7 Ann Her Michele, RN RN mg2 Kina Patton
[2020-10-04] MEDS ORDERED: ACETAMINOPHEN 325 MG TABLET ONE (10:49)
[2020-10-04 11:54] VITALS: BP 122/86; TEMP 99.5; O2SAT 95
--- NOTE | 2020-10-07 16:18 | EKG ---
Test Date: 2020-10-04 Test Time: 06:28:02 Oil Treater: MEASUREMENT RESULTS: Intervals: Rate: 116 CT: 130 QRSD: 78 QT: 306 QTc: 425 [place]: P: 78 CT: 130 QRS: 104 T: 77 INTERPRETIVE STATEMENTS: Sinus tachycardia Rightward axis Low voltage QRS Cannot rule out Anterior infarct, age undetermined Abnormal ECG Compared to ECG 09/05/2020 04:23:51 Right-axis deviation now present Low QRS voltage now present Myocardial infarct finding now present ST (T wave) deviation no longer present Electronically Signed On 10-07-20 16:10:25 AUDIO TAPE LIBRARIAN by Geoffrey Galicia
== END 2020-10-04 11:41 | disposition short-term general hospital (02) ==
LOC: ER 05:41
DX: R18.8 Other ascites (principal); J91.0 Malignant pleural effusion
CPT/HCPCS: 36415; 71045; 71260; 74177; 80048; 80076; 81003; 81025; 83690; 83735; 83880; 84484; 85025; 85610; 87086; 87088; 93005; 96361; 96374; 96375; 99285; J2270; J2405; J3480; J7040; Q9967